=== PATIENT | female | born 1960 | race Caucasian/White ===

== ENCOUNTER 2018-03-24 09:10 | Emergency (ER) | payer MEDICAID ==
[2018-03-24 10:19] LABS: ABS Basophils 0.1 10^3/ul (0-0.2); ABS Eosinophils 0.1 10^3/ul (0-0.6); ABS Lymphocytes 2.4 10^3/ul (1.0-4.8); ABS Monocytes 0.5 10^3/ul (0-0.8); ABS Neutrophils 5.4 10^3/ul (1.5-7.7); ABS Nucleated RBC 0 10^3/ul; Eosinophil % 1.1 % (0-6); Hematocrit 37 % (35-47); Hemoglobin 12.3 g/dl (12.0-16.0); Lymphocyte % 28.5 % (25-47); Mean Corpuscular HGB Conc 33 g/dl (31-36); Mean Corpuscular Hemoglobin 30 pg (27-31); Mean Corpuscular Volume 90 fL (80-97); Mean Platelet Volume 9.3 um3 (7.4-10.4); Nucleated Red Blood Cells % 0.1; Platelet Count 211 10^3/ul (150-450); Red Blood Count 4.15 10^6/ul (4.00-5.40); Red Cell Distribution Width 14 % (10.5-15); White Blood Count 8.5 10^3/ul (3.5-10.8)
[2018-03-24 10:26] LABS: INR 1.14 (0.77-1.02)
--- NOTE | 2018-03-24 10:37 | RAD ---
Indication: Upper respiratory tract infection. 2 views of the chest including dual energy PA views demonstrate no mediastinal shift. Heart is of normal size and configuration. Pacemaker leads are in place. Lung cagle appear hyperinflated. When compared to previous exam of June 26, 2016 no significant change is noted. IMPRESSION: Hyperinflated lung cagle without evidence of active cardiopulmonary disease.
[2018-03-24 10:47] LABS: EGFR Non-African American 66.5 (>60)
[2018-03-24 11:35] VITALS: BP 161/97
--- NOTE | 2018-03-24 12:46 | ED ---
Respiratory - HPI Summary HPI Summary: Patient is a 57-year-old female with a 40 year history of smoking which he quit 2 years ago presenting to the ED with cough. She states she has had a cough since starting on a CPAP machine several months ago. The CPAP machine has humidifier and it and she is concerned over a respiratory infection. She was diagnosed with bronchitis 2 months ago and was given antibiotics without improvement of her symptoms. She arrives today tearful stating she is very stressed about her job, but denies any SI/HI. She has not taken any medication at home for relief. She denies any fevers, sweats, chills. She states she has been feeling otherwise well, but is tired as she is not getting enough sleep due to her job. PMH includes hypertension, pacer and is on anticoagulation medications. - History of Current Complaint Chief Complaint: EDGeneral Stated Complaint: COUGHING UP BLOOD Time Seen by Provider: 03/24/18 09:20 Hx Obtained From: Patient Onset/Duration: Sudden Onset Timing: Constant Initial Severity: Mild Current Severity: Mild Pain Intensity: 0 Character: Cough (Productive) Sputum Amount: Scant Sputum Color: [place]-Tinged Aggravating Factor(s): Nothing - Not worse with recumbent position or better with upright position Alleviating Factor(s): Nothing Associated Signs and Symptoms: URI, Hemoptysis - Risk Factors Status Asthmaticus Risk Factors: Negative Pulmonary Embolism Risk Factors: Negative Cardiac Risk Factors: Negative Pseudomonas Risk Factors: Negative Tuberculosis Risk Factors: Negative - Allergy/Home Medications Allergies/Adverse Reactions: Allergies Allergy/AdvReac Type Severity Reaction Status Date / Time cephalexin Allergy See Comment Verified 03/24/18 10:20 PMH/Surg Hx/FS Hx/Imm Hx Previously Healthy: Yes Endocrine/Hematology History: Reports: Hx Anticoagulant Therapy - LOW DOSE ASPIRIN SINCE 2012 Denies: Hx Diabetes, Hx Thyroid Disease Cardiovascular History: Reports: Hx Hypercholesterolemia, Hx Pacemaker/ICD - pacemaker inserted 06/25/16, Other Cardiovascular Problems/Disorders - sick sinus syndrome Denies: Hx Angina, Hx Coronary Artery Disease, Hx Hypertension - NOW OFF MEDS DUE TO QUIT SMOKING, Hx Myocardial Infarction Respiratory History: Reports: Other Respiratory Problems/Disorders - 43 YEARS OF PACK A DAY SMOKING Denies: Hx Asthma, Hx Chronic Obstructive Pulmonary Disease (COPD) GI History: Reports: Hx Gastroesophageal Reflux Disease, Hx Ulcer History: Denies: Hx Renal Disease Musculoskeletal History: Reports: Hx Arthritis Denies: Hx Scoliosis Sensory History: Reports: Hx Contacts or Glasses - reading glasses Denies: Hx Hearing Aid Opthamlomology History: Reports: Hx Contacts or Glasses - reading glasses Neurological History: Denies: Hx Headaches, Other Neuro Impairments/Disorders Psychiatric History: Reports: Hx Depression Denies: Hx Panic Disorder - Surgical History Surgery Procedure, Year, and Place: Choleycystectomy, 2006 - Immunization History Hx Pertussis Vaccination: No Immunizations Up to Date: Yes Infectious Disease History: No Infectious Disease History: Reports: Hx Clostridium Difficile - Recent dx of Cdiff 1 week ago Denies: Hx Hepatitis, Hx Human Immunodeficiency Virus (HIV), Hx of Known/ Suspected MRSA, Hx Shingles, Hx Tuberculosis, Hx Known/Suspected VRE, Hx Known/ Suspected VRSA, History Other Infectious Disease, Traveled Outside the [place] in Last 30 Days - Family History Known Family History: Positive: Cardiac Disease - BOTH PARENTS DIES [place] AGE 65, Other - MGM - PANCREATIC CANCER - Social History Occupation: Employed Full-time Lives: With Family Alcohol Use: Rare Hx Substance Use: No Substance Use Type: Reports: None Substance Use Comment - Amount & Last Used: 1-2 TIMES A MONTH Hx Tobacco Use: Yes Smoking Status (MU): Former Smoker Type: Cigarettes Amount Used/How Often: 15 cigs per day Length of Time of Smoking/Using Tobacco: 40+years Have You Smoked in the Last Year: Yes Review of Systems Negative: Fever, Chills, Fatigue, Skin Diaphoresis Negative: Palpitations, Chest Pain Positive: Cough. Negative: Shortness Of Breath Negative: Abdominal Pain, Vomiting, Diarrhea, Nausea Negative: no symptoms reported, see HPI Musculoskeletal: Negative Skin: Negative Negative: Headache, Weakness, Paresthesia Positive: Anxious, Depressed All Other Systems Reviewed And Are Negative: Yes Physical Exam Triage Information Reviewed: Yes Vital Signs On Initial Exam: Initial Vitals Temp Pulse Resp BP Pulse Ox 97.8 F 68 16 161/90 99 03/24/18 09:16 03/24/18 09:16 03/24/18 09:16 03/24/18 09:16 03/24/18 09:16 Vital Signs Reviewed: Yes Appearance: Positive: Well-Appearing, Well-Nourished Skin: Positive: Warm, Skin Color Reflects Adequate Perfusion, Mottled @ Eyes: Positive: EOMI, RAVINDER, Conjunctiva Clear Neck: Positive: Supple, No Lymphadenopathy Respiratory/Lung Sounds: Positive: Wheezes - Bilateral. Negative: Rales, Rhonchi, Unable to speak in full sentences Cardiovascular: Positive: RRR, Pulses are Symmetrical in both Upper and Lower Extremities Musculoskeletal: Positive: Normal, Strength/ROM Intact Neurological: Positive: Sensory/Motor Intact, Alert, Oriented to Person Place, Time Psychiatric: Positive: Normal AVPU Assessment: Alert Diagnostics - Vital Signs Vital Signs Temp Pulse Resp BP Pulse Ox 03/24/18 11:33 97.2 F 61 17 161/97 99 03/24/18 10:25 62 17 155/90 98 03/24/18 09:16 97.8 F 68 16 161/90 99 - Laboratory Lab Results: Lab Results 03/24/18 03/24/18 03/24/18 Range/Units 10:03 10:03 10:03 WBC 8.5 (3.5-10.8) 10^3/ul RBC 4.15 (4.00-5.40) 10^6/ul Hgb 12.3 (12.0-16.0) g/dl Hct 37 (35-47) % MCV 90 (80-97) fL MCH 30 (27-31) pg MCHC 33 (31-36) g/dl RDW 14 (10.5-15) % Plt Count 211 (150-450) 10^3/ul MPV 9.3 (7.4-10.4) um3 Neut % (Auto) 63.1 (38-83) % Lymph % (Auto) 28.5 (25-47) % [place] % (Auto) 5.9 (0-7) % Eos % (Auto) 1.1 (0-6) % Baso % (Auto) 1.4 (0-2) % Absolute Neuts (auto) 5.4 (1.5-7.7) 10^3/ul Absolute Lymphs (auto) 2.4 (1.0-4.8) 10^3/ul Absolute Monos (auto) 0.5 (0-0.8) 10^3/ul Absolute Eos (auto) 0.1 (0-0.6) 10^3/ul Absolute Basos (auto) 0.1 (0-0.2) 10^3/ul Absolute Nucleated RBC 0 10^3/ul Nucleated RBC % 0.1 INR (Anticoag Therapy) 1.14 H (0.77-1.02) Sodium 142 (135-145) mmol/L Potassium 4.1 (3.5-5.0) mmol/L Chloride 111 (101-111) mmol/L Carbon Dioxide 25 (22-32) mmol/L Anion Gap 6 (2-11) mmol/L BUN 19 (6-24) mg/dL Creatinine 0.88 (0.51-0.95) mg/dL Est GFR ( Amer) 80.4 (>60) Est GFR (Non-Af Amer) 66.5 (>60) BUN/Creatinine Ratio 21.6 H (8-20) Glucose 106 H (70-100) mg/dL Lactic Acid (0.5-2.0) mmol/L Calcium 9.1 (8.6-10.3) mg/dL Total Bilirubin 0.30 (0.2-1.0) mg/dL AST 20 (13-39) U/L ALT 25 (7-52) U/L Alkaline Phosphatase 91 (34-104) U/L Troponin I 0.00 (<0.04) ng/mL Total Protein 6.0 L (6.4-8.9) g/dL Albumin 3.8 (3.2-5.2) g/dL Globulin 2.2 (2-4) g/dL Albumin/Globulin Ratio 1.7 (1-3) 03/24/18 Range/Units 10:03 WBC (3.5-10.8) 10^3/ul RBC (4.00-5.40) 10^6/ul Hgb (12.0-16.0) g/dl Hct (35-47) % MCV (80-97) fL MCH (27-31) pg MCHC (31-36) g/dl RDW (10.5-15) % Plt Count (150-450) 10^3/ul MPV (7.4-10.4) um3 Neut % (Auto) (38-83) % Lymph % (Auto) (25-47) % [place] % (Auto) (0-7) % Eos % (Auto) (0-6) % Baso % (Auto) (0-2) % Absolute Neuts (auto) (1.5-7.7) 10^3/ul Absolute Lymphs (auto) (1.0-4.8) 10^3/ul Absolute Monos (auto) (0-0.8) 10^3/ul Absolute Eos (auto) (0-0.6) 10^3/ul Absolute Basos (auto) (0-0.2) 10^3/ul Absolute Nucleated RBC 10^3/ul Nucleated RBC % INR (Anticoag Therapy) (0.77-1.02) Sodium (135-145) mmol/L Potassium (3.5-5.0) mmol/L Chloride (101-111) mmol/L Carbon Dioxide (22-32) mmol/L Anion Gap (2-11) mmol/L BUN (6-24) mg/dL Creatinine (0.51-0.95) mg/dL Est GFR ( Amer) (>60) Est GFR (Non-Af Amer) (>60) BUN/Creatinine Ratio (8-20) Glucose (70-100) mg/dL Lactic Acid 0.7 (0.5-2.0) mmol/L Calcium (8.6-10.3) mg/dL Total Bilirubin (0.2-1.0) mg/dL AST (13-39) U/L ALT (7-52) U/L Alkaline Phosphatase (34-104) U/L Troponin I (<0.04) ng/mL Total Protein (6.4-8.9) g/dL Albumin (3.2-5.2) g/dL Globulin (2-4) g/dL Albumin/Globulin Ratio (1-3) Result Diagrams: 03/24/18 10:03 03/24/18 10:03 Lab Statement: Any lab studies that have been ordered have been reviewed, and results considered in the medical decision making process. Disposition - Course Course Of Treatment: During the course of treatment, the patient is evaluated for acute cough. History of sleep apnea, smoking history and hypertension. She endorses mild hemoptysis this morning, and states she has a gastric ulcer. She takes famotidine daily for this. She is on blood thinners for her pacemaker and her INR is within therapeutic range. She denies any epigastric tenderness. She states the hemoptysis this morning scared her. She quantifies it as well as flecks inside the mucous. She states symptoms have been since starting her CPAP machine and is concerned over an infection. Labs obtained are all WNL. Chest x-ray shows hyperinflation, without other findings. Discussed this with patient and stated due to her job she may be becoming immunocompromised and run down. She agrees with this. I have advised over-the- counter cough medication and continuation of her CPAP machine as benefits outweigh the risks. She denies any SI/HI, but just is endorsing stress. She has had no cough during her stay in the ED and her vital signs remained stable. She states she is comfortable with going home at this time and will follow up with her PCP. - Differential Dx - Cardiopulmonary Differential Diagnoses - Cardiopulmonary: Other - Acute cough, hemoptysis, gastric ulcer - Diagnoses Provider Diagnoses: Hemoptysis Discharge - Sign-Out/Discharge Documenting (check all that apply): Patient Departure - Discharge Plan Condition: Stable Disposition: HOME Referrals: Ta Joseph MD [Primary Care Provider] - Additional Instructions: Sleep Cough medication may help, such as an [id number] Robitussin Continue with CPAP machine Try an [id number] allergy medication to see if her symptoms improve Get plenty of rest and continue with a good diet - Billing Disposition and Condition Condition: STABLE Disposition: Home
== END 2018-03-24 11:38 | disposition home or self-care (01) ==
LOC: ED 09:10
DX: R04.2 Hemoptysis (principal); K25.9 Gastric ulcer, unspecified as acute or chronic, without hemorrhage or perforation; G47.30 Sleep apnea, unspecified; J98.4 Other disorders of lung; I10 Essential (primary) hypertension; Z99.89 Dependence on other enabling machines and devices; Z95.0 Presence of cardiac pacemaker; Z87.09 Personal history of other diseases of the respiratory system; Z87.891 Personal history of nicotine dependence; Z79.82 Long term (current) use of aspirin; Z88.3 Allergy status to other anti-infective agents
CPT/HCPCS: 36415; 71046; 80053; 83605; 84484; 85025; 85610; 93005; 99282

== ENCOUNTER 2019-03-12 17:55 | Emergency (ER) | payer SELFPAY ==
--- OUTSIDE RECORDS SUMMARY | 2019-03-12 18:04 | XMS REPORT | Continuity of Care Document ---
:1960 External Reference #:[id number] Author Name Jolene Valladares Care Team Providers Name Role Phone Marlyn Orourke MD Primary Care Physician Unavailable Payers Date Identification Numbers Payment Provider Subscriber Effective: Policy Number: [id number] [facility] Xavier Ferrera 2018 Expires: 2019 PayID: [id number] [address] [address] [place] [address] Expires: 2016 PayID: [id number] [employer] [address] [place] [address] Expires: 2019 Policy Number: [facility] Essential Khloe Ferrera [id number] PayID: [id number] [address] [address] [place] [address] Advance Directives Type Date Description Status Comment MOLST 12/28/2015 MOL Current and Verified Problems Active Problems Provider Date Paroxysmal atrial fibrillation Angel Rutledge NP Onset: 02/22/2016 Essential hypertension Angel Rutledge NP Onset: 02/02/2016 Hyperlipidemia Angel Rutledge NP Onset: 02/02/2016 Mild recurrent major depression Ta Joseph M.D. Onset: 02/29/2016 Mixed hyperlipidemia Ta Joseph M.D. 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 Onset: 11/08/2016 Candidiasis of mouth Ta Joseph M.D. Onset: 01/08/2017 Mild major depression, single Ta Joseph M.D. Onset: 04/11/2017 episode Abnormal glucose level Ta Joseph M.D. Onset: 01/27/2018 Prediabetes Ta Joseph M.D. Onset: 01/27/2018 Family History Date Family Member(s) Observation Comments General Family Hx Maternal GM- pancreatic cancer, obese Mom- MD Father- MD Son- alive and healthy Father Heart Disease Father due to MD () Father due to mid 60's () Mother due to Heart Disease () Mother due to MD () Siblings 3 Siblings 1/2 siblings No known cardiac disease Maternal Grandfather due to appendicitis () Maternal Grandmother due to Pancreatic () Cancer Social History Type Date Description Comments Sex Unknown Marital Status Single Lives With Alone Occupation Unemployed Tobacco Use Start: Unknown End: Former Cigarette Unknown Smoker ETOH Use consumed 2-3 glasses of wine per day Recreational Drug Use Denies Drug Use Tobacco Use Start: Unknown End: Patient is a former Unknown smoker Tobacco Use Start: Unknown quit 12/27/15 Smoking Status Reviewed: 02/18/19 quit 12/27/15 Exercise Type/Frequency Exercises regularly regular work out at [employer] 4-5 times weekly, sometimes 6 days a week. Allergies, Adverse Reactions, Alerts Active Allergies Reaction Severity Comments Date Keflex yeast infection 01/05/2016 Lipitor Severe depression and myalgias 12/28/2016 symptoms Rosuvastatin Calcium nausea, memory Moderate 12/28/2016 Simvastatin Moderate 12/28/2016 Contrast Dye 06/06/2017 Medications Active Medications SIG Qnty Indications Ordering Provider Date Fluticasone 2 sprays each 16gm J30.89 Jerry Love NP 02/18/2019 Propionate nostril qd. 50mcg/Act Suspension Lisinopril 1 by mouth every 90tabs I10 Yue Diaz, 09/30/2018 5mg day N.P. Tablets Cpap for use while Unknown 06/05/2017 Device sleeping Potassium Chloride 1 tablet by mouth 180tabs [place] 08/09/2016 ER twice a day Martin Granger 20Meq Tablets ER Magnesium-Oxide 1 by mouth every 100tabs [place] 02/16/2016 250mg day Martin Granger Tablets Eliquis take 1 tab by 180tabs R73.9 [place] 02/16/2016 5mg Tablets mouth every 12 Martin Granger hours Famotidine take one tablet 60tabs Other Ordering 12/28/2015 20mg by mouth daily Provider Tablets Sertraline HCL take 1 tablet by 180tabs F33.0 Jerry Love NP 25mg mouth two times Tablets daily History Medications Niaspan once daily 30tabs E78.5 [place] 01/27/2018 - 500mg Tablets ER [place], 09/28/2018 Martin Doxycycline Hyclate 1 po bid x 7 days 14tabs J20.9 Christiane Gonzalez, 2017 - 100mg N.P. 12/30/2017 Tablets Repatha take 1 dose 2ml E78.5 Yue S. 12/11/2017 - 140mg/ml Soln Prefill subcutaneously [place], N.P. 12/29/2018 Syringe every 2 weeks. Pravastatin Sodium take one half 14tabs [place] 10/15/2017 - 10mg tablet by mouth jg Granger M.D. 01/27/2018 Tablets w-f on Hold Nystatin 5ml swish and 250ml B37.0 [place] 10/10/2017 - [id number]/ML swallow 5 times [place], 09/28/2018 Suspension daily M.Yoana Clindamycin HCL 1 cap every 6 28caps J06.9 [place] 10/10/2017 - 150mg hours [facility], 09/12/2017 Capsules Martin Zetia 1 by mouth every 30tabs E78.00 [place] 06/06/2017 - 10mg Tablets day Martin Granger 07/09/2017 Plavix Take 75 mg PO 180tabs Grabiel Love 03/14/2017 - 75mg Tablets daily for 6 months Martin Strickland 04/29/2017 starting ~1 week prior to endovascular surgery with Dr. Strickland. Atorvastatin Calcium 1/2 tablet by 30tabs [place] 11/01/2016 - 10mg mouth every other Martin Granger 12/03/2016 Tablets day (on hold as of 11/17/16) Nystatin 5ml swish and 400ml Ta 10/19/2016 - 000175Tstf/ML swallow 5 times Jake, 06/05/2017 Suspension daily x2 weeks. Martin Fluconazole once daily Pt 2tabs B37.3 [place] 10/09/2016 - 150mg Tablets states she is no Jake, 12/27/2016 longer taking Martin Crestor 1 tab by mouth 30tabs E78.00 [place] 08/09/2016 - 5mg Tablets every other day Martin Granger 10/09/2016 Metoprolol Tartrate 1/2 by mouth once 180tabs R73.9 Sandeep Lees 06/26/2016 - 25mg a day until Martin Bang 06/05/2017 Tablets 05/07/17 and then 1/2 on 05/09, and and then discontinue Clindamycin HCL one capsule by 9caps Sandeep Lees 06/26/2016 - 150mg mouth three times Martin Bang 07/02/2016 Capsules a day for 3 days Oxycodone-Acetaminophen 1 tab every 12h as 6tabs [place] 06/26/2016 - needed Claudiaika, 07/09/2016 5-325mg Tablets Martin Potassium Chloride 1 by mouth every [place] 03/06/2016 - 20Meq day Martin Granger 08/09/2016 Sertraline HCL 1/2 by mouth bid 30tabs F33.0 [place] 03/06/2016 - 50mg Tablets Martin Granger 03/12/2016 Sertraline HCL 1 by mouth twice 60tabs F33.0 Ta 02/29/2016 - 25mg Tablets daily (pt has not Jake, 03/06/2016 been taking, pt to Martin update PMD) Sertraline HCL 1 by mouth every 30tabs F33.0 Angel Rutledge 02/22/2016 - 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 Metronidazole 1 by mouth tid x 42tabs A04.7 Angel Rutledge 02/22/2016 - 500mg Tablets 14 days; avoid REFINISHER 03/07/2016 alcohol while taking med and 24 hours thereafter Potassium Chloride ER 2 po qd x 1 week 90tabs [place] 02/16/2016 - 20Meq then 1 po qd Martin Granger 03/04/2016 Tablets ER Sertraline HCL 1 by mouth every 14tabs F33.0 Angel Rutledge, 02/07/2016 - 25mg Tablets day x 1 week then REFINISHER 02/22/2016 2 tab daily Metoprolol Tartrate 1/2 by mouth every 30tabs R73.9 [place] 2015 - 25mg day prn Martin Granger 06/26/2016 Tablets Warfarin Sodium as directed 90tabs [place] 01/19/2016 - 2.5mg Tablets [facility], 01/19/2016 Martin Duloxetine HCL once in the 30caps F32.9 [place] 01/19/2016 - 20mg Caps DR morning with food [facility], 02/01/2016 Part Martin Xarelto 1 by mouth twice 42tabs I48.91 [place] 01/19/2016 - 15mg Tablets daily [facility], 02/02/2016 MMaryDMary Omeprazole 1 by mouth every 30caps K29.60 [place] 01/05/2016 - 40mg Capsules DR day 1 hr before [facility], 10/22/2016 breakfast M.D. Tramadol HCL three times a day 30tabs M79.1 [place] 01/05/2016 - 50mg Tablets as needed [facility], 01/19/2016 Martin Ibuprofen 1 tab by mouth 30tabs Other Ordering 12/28/2015 - 800mg Tablets daily, only as Provider 01/05/2016 needed Lisinopril 1 by mouth every 30tabs Other Ordering 12/28/2015 - 5mg Tablets day Provider 03/05/2016 Hydrochlorothiazide 1 by mouth every 90tabs Other Ordering 12/28/2015 - 25mg day Provider 02/02/2016 Tablets Aspirin Ec 1 by mouth every 30tabs Other Ordering 12/28/2015 - 81mg Tablets DR day Provider 01/05/2016 Warfarin Sodium 1 tab PO daily in 60tabs Other Ordering 12/28/2015 - 5mg Tablets the evening Provider 01/19/2016 Lovenox 1 subcutaneously 10ml Other Ordering 12/28/2015 - 100mg/ml Solution every 12 hours as Provider 01/02/2016 directed x 5 days Lisinopril/Hydrochloroth take one pill a 30tabs Other Ordering 2013 - iazide day for htn Provider 03/05/2016 10-12.5mg Tablets Aspir-Low 1 po qd (has not Other Ordering 10/19/2013 - 81mg Tablets DR been taking) Provider 03/29/2016 Ibuprofen take 2-3 tabs po 100tabs Other Ordering 10/19/2013 - 200mg Tablets every 6-8 hours as Provider 03/05/2016 needed Tumeric 2 po qd Unknown - Tablets 02/02/2016 Probiotic 1 by mouth every Unknown - Capsules day 10/22/2016 Prednisone take 4 tabs by Unknown - 10mg Tablets mouth daily for 5 09/18/2018 days Azithromycin 2 now and 1 daily Unknown - 250mg Tablets x 4 days 09/18/2018 Lisinopril 1 by mouth every Unknown - 5mg Tablets day 09/30/2018 Proventil HFA 2 puffs every 4 Unknown - 108(90Base) hours as needed 01/08/2019 mcg/Act Aerosol Immunizations CPT Code Status Date Vaccine Reaction Lot # [id number] Given 07/09/2017 Influenza Virus Vaccine, no reaction, pt [id number] Quadrivalent, Split, tolerated well Preservative Free [id number] Given 10/09/2016 Tdap - [id number] Tetanus/Diptheria/Acellular Pertussis 45731 Given 05/11/2016 Influenza Virus Vaccine, Quadrivalent, Split, Preservative Free Vital Signs Date Vital Result Comment 02/18/2019 4:17pm Height 68 inches 5'8" Weight 191.25 lb Heart Rate 66 /min BP Systolic 139 mmHg BP Diastolic 80 mmHg Body Temperature 98.1 F O2 % BldC Oximetry 97 % BMI (Body Mass Index) 29.1 kg/m2 01/08/2019 3:52pm Height 68 inches 5'8" Weight 191.00 lb Heart Rate 92 /min BP Systolic 168 mmHg BP Diastolic 97 mmHg Body Temperature 98.2 F O2 % BldC Oximetry 99 % BMI (Body Mass Index) 29.0 kg/m2 10/17/2018 2:10pm Height 68 inches 5'8" Weight 186.50 lb Heart Rate 82 /min BP Systolic 144 mmHg BP Diastolic 84 mmHg O2 % BldC Oximetry 99 % BMI (Body Mass Index) 28.4 kg/m2 Last Menstrual Period [id number] 09/30/2018 8:24am Height 68 inches 5'8" Weight 180.75 lb no shoes Heart Rate 72 /min BP Systolic Sitting 126 mmHg lue large cuf BP Diastolic Sitting 80 mmHg lue large cuf BP Systolic Standing 124 mmHg lue large cuff BP Diastolic Standing 80 mmHg lue large cuff Respiratory Rate 12 /min BMI (Body Mass Index) 27.5 kg/m2 Ejection Fraction 60-65% echo.12/27/15 09/26/2018 7:55am Height 68 inches 5'8" Weight 181.00 lb Heart Rate 68 /min BP Systolic 136 mmHg BP Diastolic 83 mmHg O2 % BldC Oximetry 100 % BMI (Body Mass Index) 27.5 kg/m2 Last Menstrual Period [id number] 09/19/2018 2:12pm Height 68 inches 5'8" Weight 181.00 lb Heart Rate 88 /min BP Systolic Sitting 122 mmHg BP Diastolic Sitting 80 mmHg Body Temperature 98.1 F O2 % BldC Oximetry 96 % BMI (Body Mass Index) 27.5 kg/m2 09/16/2018 1:22pm Height 68 inches 5'8" Weight 179.50 lb with shoes Heart Rate 96 /min BP Systolic Sitting 142 mmHg left arm BP Diastolic Sitting 84 mmHg left arm BMI (Body Mass Index) 27.3 kg/m2 Ejection Fraction 60-65% Echocardiogram 12/27/15 01/27/2018 9:28am Height 68 inches 5'8" Weight 221.00 lb Heart Rate 71 /min BP Systolic 125 mmHg BP Diastolic 72 mmHg O2 % BldC Oximetry 98 % BMI (Body Mass Index) 33.6 kg/m2 12/23/2017 2:13pm Height 68 inches 5'8" Weight 225.00 lb Heart Rate 90 /min BP Systolic Sitting 124 mmHg BP Diastolic Sitting 68 mmHg Body Temperature 97.6 F O2 % BldC Oximetry 95 % BMI (Body Mass Index) 34.2 kg/m2 12/11/2017 10:10am Height 68 inches 5'8" Weight 227.00 lb w/ shoes Heart Rate 66 /min BP Systolic Sitting 110 mmHg Lue BP Diastolic Sitting 70 mmHg Lue Respiratory Rate 16 /min BMI (Body Mass Index) 34.5 kg/m2 Ejection Fraction 60-65% as of 12/27/15 echo 10/15/2017 9:19am Height 68 inches 5'8" Weight 225.00 lb w/ shoes Heart Rate 74 /min reg BP Systolic Sitting 134 mmHg Lue BP Diastolic Sitting 92 mmHg Lue Respiratory Rate 16 /min BMI (Body Mass Index) 34.2 kg/m2 Ejection Fraction 60-65% as of 12/27/15 echo 10/10/2017 8:25am Height 68 inches 5'8" Weight 225.38 lb Heart Rate 68 /min BP Systolic Sitting 122 mmHg BP Diastolic Sitting 82 mmHg Body Temperature 97.4 F O2 % BldC Oximetry 94 % BMI (Body Mass Index) 34.3 kg/m2 07/09/2017 1:56pm Weight 222.50 lb Heart Rate 74 /min BP Systolic 135 mmHg BP Diastolic 82 mmHg O2 % BldC Oximetry 99 % 06/06/2017 2:49pm Height 68 inches 5'8" Weight 222.38 lb with shoes Heart Rate 80 /min BP Systolic Sitting 136 mmHg LA lrg cuff BP Diastolic Sitting 78 mmHg LA lrg cuff BMI (Body Mass Index) 33.8 kg/m2 Ejection Fraction 55% stress test 03/01/16 04/30/2017 10:32am Height 68 inches 5'8" Weight 221.00 lb with shoes Heart Rate 80 /min BP Systolic Sitting 116 mmHg LA lrg cuff BP Diastolic Sitting 62 mmHg LA lrg cuff BMI (Body Mass Index) 33.6 kg/m2 Ejection Fraction 55% stress echo 03/01/16 04/11/2017 9:55am Height 68 inches 5'8" Weight 211.38 lb Heart Rate 78 /min BP Systolic 146 mmHg BP Diastolic 92 mmHg Body Temperature 96.9 F O2 % BldC Oximetry 99 % BMI (Body Mass Index) 32.1 kg/m2 01/08/2017 9:54am Weight 206.38 lb Heart Rate 83 /min BP Systolic 136 mmHg BP Diastolic 84 mmHg Body Temperature 97.3 F O2 % BldC Oximetry 99 % 12/28/2016 8:10am Height 68 inches 5'8" Weight 210.75 lb with shoes Heart Rate 70 /min BP Systolic Sitting 132 mmHg LA lrg cuff BP Diastolic Sitting 92 mmHg LA lrg cuff BMI (Body Mass Index) 32.0 kg/m2 Ejection Fraction 60% - 65% echo 12/27/15 11/08/2016 2:23pm Height 68 inches 5'8" Weight 212.00 lb w/ shoes Heart Rate 62 /min reg BP Systolic Sitting 110 mmHg Rue, lg cuff BP Diastolic Sitting 60 mmHg Rue, lg cuff Respiratory Rate 16 /min BMI (Body Mass Index) 32.2 kg/m2 10/23/2016 8:14am Height 68 inches 5'8" Weight 222.75 lb with shoes Heart Rate 74 /min BP Systolic Sitting 118 mmHg LA lrg cuff BP Diastolic Sitting 74 mmHg LA lrg cuff BMI (Body Mass Index) 33.9 kg/m2 Ejection Fraction 55% stress echo 03/01/16 10/09/2016 9:49am Weight 221.00 lb Heart Rate 70 /min BP Systolic Sitting 128 mmHg BP Diastolic Sitting 84 mmHg Respiratory Rate 15 /min Body Temperature 97.9 F O2 % BldC Oximetry 98 % 08/09/2016 11:26am Height 68 inches 5'8" Weight 230.00 lb w/o shoes Heart Rate 84 /min BP Systolic Sitting 130 mmHg Ra lrg cuff BP Diastolic Sitting 86 mmHg Ra lrg cuff BMI (Body Mass Index) 35.0 kg/m2 Ejection Fraction 60% - 65% echo 12/27/15 07/24/2016 8:08am Height 68 inches 5'8" Weight 234.00 lb with shoes Heart Rate 70 /min BP Systolic Sitting 112 mmHg LA lrg cuff BP Diastolic Sitting 72 mmHg LA lrg cuff BMI (Body Mass Index) 35.6 kg/m2 Ejection Fraction 55% stress echo 03/01/16 07/09/2016 12:47pm Height 68 inches 5'8" Weight 230.25 lb Heart Rate 60 /min BP Systolic Sitting 126 mmHg BP Diastolic Sitting 80 mmHg Body Temperature 96.9 F O2 % BldC Oximetry 98 % BMI (Body Mass Index) 35.0 kg/m2 07/03/2016 1:01pm Height 68 inches 5'8" Weight 227.00 lb Heart Rate 64 /min BP Systolic Sitting 128 mmHg left arm, reg cuff BP Diastolic Sitting 82 mmHg left arm, reg cuff BP Systolic Standing 130 mmHg left arm, reg cuff BP Diastolic Standing 86 mmHg left arm, reg cuff Respiratory Rate 16 /min BMI (Body Mass Index) 34.5 kg/m2 Ejection Fraction 60-65% 12/27/15 06/12/2016 8:34am Height 68 inches 5'8" Weight 226.00 lb Heart Rate 65 /min BP Systolic 128 mmHg BP Diastolic 88 mmHg Respiratory Rate 14 /min O2 % BldC Oximetry 97 % BMI (Body Mass Index) 34.4 kg/m2 06/07/2016 9:36am Height 68 inches 5'8" Weight 226.25 lb with shoes Heart Rate 66 /min BP Systolic Sitting 132 mmHg LA lrg cuff BP Diastolic Sitting 84 mmHg LA lrg cuff BMI (Body Mass Index) 34.4 kg/m2 Ejection Fraction 60% -65% echo 12/27/15 05/11/2016 10:16am Height 68 inches 5'8" Weight 224.00 lb Heart Rate 64 /min BP Systolic 134 mmHg BP Diastolic 88 mmHg Respiratory Rate 14 /min O2 % BldC Oximetry 97 % BMI (Body Mass Index) 34.1 kg/m2 Neck Circumference in inches 16 04/12/2016 10:11am Height 68 inches 5'8" Weight 218.50 lb w/ shoes Heart Rate 54 /min reg BP Systolic Sitting 140 mmHg Rue, lg cuff BP Diastolic Sitting 76 mmHg Rue, lg cuff BP Systolic Standing 134 mmHg Rue BP Diastolic Standing 80 mmHg Rue Respiratory Rate 16 /min BMI (Body Mass Index) 33.2 kg/m2 Ejection Fraction 60-65% as of 12/27/15 echo 04/06/2016 9:41am Height 68 inches 5'8" Weight 215.75 lb No shoes Heart Rate 76 /min irreg BP Systolic Sitting 136 mmHg Ra lrg cuff BP Diastolic Sitting 80 mmHg Ra lrg cuff BP Systolic Standing 140 mmHg Ra lrg cuff BP Diastolic Standing 78 mmHg Ra lrg cuff BMI (Body Mass Index) 32.8 kg/m2 Ejection Fraction 60-65% 12/27/2015 03/29/2016 8:23am Height 68 inches 5'8" Weight 216.00 lb Heart Rate 80 /min BP Systolic Sitting 130 mmHg BP Diastolic Sitting 68 mmHg Body Temperature 96.8 F O2 % BldC Oximetry 98 % BMI (Body Mass Index) 32.8 kg/m2 03/06/2016 2:37pm Height 68 inches 5'8" Weight 216.00 lb w/shoes Heart Rate 58 /min BP Systolic Sitting 132 mmHg LA lg cuff BP Diastolic Sitting 88 mmHg LA lg cuff BMI (Body Mass Index) 32.8 kg/m2 Ejection Fraction 60-65% Echo 12/27/15 02/29/2016 9:12am Height 68 inches 5'8" Weight 217.25 lb Heart Rate 88 /min BP Systolic Sitting 120 mmHg BP Diastolic Sitting 88 mmHg Body Temperature 97.8 F O2 % BldC Oximetry 98 % BMI (Body Mass Index) 33.0 kg/m2 02/22/2016 9:45am Weight 213.50 lb Heart Rate 66 /min BP Systolic Sitting 130 mmHg BP Diastolic Sitting 72 mmHg Body Temperature 97.8 F O2 % BldC Oximetry 98 % 02/16/2016 3:27pm Height 68 inches 5'8" Weight 218.00 lb with shoes Heart Rate 66 /min BP Systolic Sitting 132 mmHg La lg cuff BP Diastolic Sitting 80 mmHg La lg cuff BP Systolic Standing 142 mmHg LA lrg cuff BP Diastolic Standing 86 mmHg LA lrg cuff Respiratory Rate 16 /min BMI (Body Mass Index) 33.1 kg/m2 Ejection Fraction 60-65% date 12/27/15 ECHO 02/07/2016 2:42pm Height 68 inches 5'8" Weight 215.00 lb Heart Rate 78 /min BP Systolic Sitting 142 mmHg BP Diastolic Sitting 68 mmHg O2 % BldC Oximetry 98 % BMI (Body Mass Index) 32.7 kg/m2 02/02/2016 9:39am Height 68 inches 5'8" Weight 213.50 lb with shoes Heart Rate 58 /min BP Systolic 122 mmHg LA lrg cuff BP Diastolic 80 mmHg LA lrg cuff BMI (Body Mass Index) 32.5 kg/m2 01/19/2016 2:10pm Height 68 inches 5'8" Weight 210.00 lb Heart Rate 80 /min BP Systolic Sitting 120 mmHg BP Diastolic Sitting 78 mmHg Body Temperature 97.8 F O2 % BldC Oximetry 98 % BMI (Body Mass Index) 31.9 kg/m2 01/05/2016 3:15pm Height 68 inches 5'8" Weight 210.00 lb Heart Rate 61 /min BP Systolic Sitting 110 mmHg BP Diastolic Sitting 70 mmHg Body Temperature 97.7 F O2 % BldC Oximetry 95 % BMI (Body Mass Index) 31.9 kg/m2 10/19/2013 1:18pm Height 68 inches 5'8" Weight 217.00 lb Heart Rate 102 /min BP Systolic 140 mmHg BP Diastolic 86 mmHg Respiratory Rate 20 /min Body Temperature 96.8 F BMI (Body Mass Index) 33.0 kg/m2 Results Test Date Facility Test Result H/L Range Note Urine Culture And 10/17/2018 [facility] Urine Culture SEE RESULT [address] [place] [address] [phone] Laboratory test 09/26/2018 [facility] Cytology SEE RESULT [address] [place] [address] [phone] Lipid Panel - JFM 09/22/2018 [facility] Creatine 62 U/L N 10- [address] Kinase(CK) [place] [address] [phone] Comp Metabolic 09/22/2018 [facility] Sodium 138 mmol/L N 135- [address] [place] [address] [phone] Potassium 4.5 mmol/L N 3.5-5.0 Chloride 105 mmol/L N 101-111 Co2 Carbon Dioxide 25 mmol/L N 22-32 Anion Gap 8 mmol/L N 2-11 Glucose 124 mg/dL High 70-100 Blood Urea Nitrogen 23 mg/dL N 6-24 Creatinine 0.95 mg/dL N 0.51-0.95 BUN/Creatinine Ratio 24.2 High 8-20 Calcium 9.6 mg/dL N 8.6-10.3 Total Protein 6.5 g/dL N 6.4-8.9 Albumin 4.4 g/dL N 3.2-5.2 Globulin 2.1 g/dL N 2-4 Albumin/Globulin Ratio 2.1 N 1-3 Total Bilirubin 0.90 mg/dL N 0.2-1.0 Alkaline Phosphatase 107 U/L High 34-104 Alt 26 U/L N 7-52 Ast 19 U/L N 13-39 Egfr Non- 60.9 >60 Egfr 73.6 >60 4 Lipid Profile 09/22/2018 [facility] Triglycerides 185 mg/dL 5 (Trig/Chol/HDL) [address] [place] [address] [phone] Cholesterol 265 mg/dL 6 HDL Cholesterol 67.2 mg/dL 7 LDL Cholesterol 161 mg/dL 8 CBC Auto Diff 09/22/2018 [facility] White Blood 9.9 10^3/uL N 3.5-10.[address] [place] [address] [phone] Red Blood Count 4.65 10^6/uL N 4.00-5.40 Hemoglobin 14.4 g/dL N 12.0-16.0 Hematocrit 43 % N 35-47 Mean Corpuscular Volume 93 fL N 80-97 Mean Corpuscular Hemoglobin 31 pg N 27-31 Mean Corpuscular HGB Conc 33 g/dL N 31-36 Red Cell Distribution Width 14 % N 10.5-15 Platelet Count 279 10^3/uL N 150-450 Mean Platelet Volume 8.7 fL N 7.4-10.4 Abs Neutrophils 5.3 10^3/uL N 1.5-7.7 Abs Lymphocytes 3.7 10^3/uL N 1.0-4.8 Abs Monocytes 0.7 10^3/uL N 0-0.8 Abs Eosinophils 0.2 10^3/uL N 0-0.6 Abs Basophils 0.1 10^3/uL N 0-0.2 Abs Nucleated RBC 0 10^3/uL Granulocyte % 53.1 % Lymphocyte % 37.4 % Monocyte % 7.0 % Eosinophil % 1.9 % Basophil % 0.6 % Nucleated Red Blood Cells % 0.1 Laboratory test 09/22/2018 [facility] Hemoglobin A1c 5.8 % High 4.0-5.[address] (Glyco HGB) [place] [address] [phone] Magnesium 2.2 mg/dL N 1.9-2.7 10 C Reactive Protein 1.83 mg/L N <8.01 11 Erythrocyte Sed Rate 5 mm/Hr N 0-30 12 Rapid Influenza 09/15/2018 [facility] Influenza A NEGATIVE Negative 13 A & B Molecular [address] [place] [address] [phone] Influenza B Molecular NEGATIVE Negative Mumps Igg 02/18/2018 [facility] Mumps Virus IgG Antibody Positive [address] [place] [address] [phone] Mumps IgG Antibody Index 4.7 15 Laboratory test 02/18/2018 [facility] Rubella Screen Immune Immune finding [address] [place] [address] [phone] Rubeola Measles 02/18/2018 [facility] Rubeola Positive 16 Igg AB [address] (Measles) [place] [address] Antibody [phone] Rubeola IgG Antibody Index 6.8 17 Laboratory test 01/27/2018 [facility] Hemoglobin A1c 6.3 5-7 finding Laboratory test 10/15/2017 [facility] Magnesium 2.0 mg/dL N 1.9-2.7 [address] [place] [address] [phone] CBC Auto Diff 10/15/2017 [facility] White Blood Count 11.2 High 3.5-10.[address] 10^3/[place] [address] [phone] Red Blood Count 4.38 10^6/uL N 4.0-5.4 Hemoglobin 12.6 g/dL N 12.0-16.0 Hematocrit 39 % N 35-47 Mean Corpuscular Volume 89 fL N 80-97 Mean Corpuscular Hemoglobin 29 pg N 27-31 Mean Corpuscular HGB Conc 33 g/dL N 31-36 Red Cell Distribution Width 14 % N 10.5-15 Platelet Count 292 10^3/uL N 150-450 Mean Platelet Volume 8 um3 N 7.4-10.4 Abs Neutrophils 6.5 10^3/uL N 1.5-7.7 Abs Lymphocytes 3.6 10^3/uL N 1.0-4.8 Abs Monocytes 0.6 10^3/uL N 0-0.8 Abs Eosinophils 0.3 10^3/uL N 0-0.6 Abs Basophils 0.1 10^3/uL N 0-0.2 Abs Nucleated RBC 0 10^3/uL Granulocyte % 58.3 % N 38-83 Lymphocyte % 32.2 % N 25-47 Monocyte % 5.4 % N 0-7 Eosinophil % 3.1 % N 0-6 Basophil % 1.0 % N 0-2 Nucleated Red Blood Cells % 0.1 Laboratory test 10/15/2017 [facility] Hemoglobin A1c 6.1 % High 4.0-5.6 [address] (Glyco HGB) [place] [address] [phone] Laboratory test 10/10/2017 [facility] TSH (Thyroid 2.76 N 0.34 -5.[address] Stim Horm) mcIU/[place] [address] [phone] Basic Metabolic 10/10/2017 [facility] Sodium 139 N 133-[address] mmol/[place] [address] [phone] Potassium 4.4 mmol/L N 3.5-5.0 Chloride 105 mmol/L N 101-111 Co2 Carbon Dioxide 26 mmol/L N 22-32 Anion Gap 8 mmol/L N 2-11 Glucose 116 mg/dL High 70-100 Blood Urea Nitrogen 15 mg/dL N 6-24 Creatinine 0.73 mg/dL N 0.51-0.95 BUN/Creatinine Ratio 20.5 High 8-20 Calcium 9.3 mg/dL N 8.6-10.3 Egfr Non- 82.8 >60 Egfr 106.4 >60 20 Lipid Profile 10/10/2017 [facility] Triglycerides 173 mg/dL 21 (Trig/Chol/HDL) [address] [place] [address] [phone] Cholesterol 242 mg/dL 22 HDL Cholesterol 40.2 mg/dL 23 LDL Cholesterol 167 mg/dL 24 Laboratory test 04/05/2017 [facility] HCG 2.21 mIU/mL N [address] [place], [place] [address] [phone] CBC Auto Diff 04/05/2017 [facility] White Blood 10.6 10^3/uL N 3.5-[address] Count .8 [place] [address] [phone] Red Blood Count 3.99 10^6/uL Low 4.0-5.4 Hemoglobin 11.4 g/dL Low 12.0-16.0 Hematocrit 35 % N 35-47 Mean Corpuscular Volume 88 fL N 80-97 Mean Corpuscular Hemoglobin 29 pg N 27-31 Mean Corpuscular HGB Conc 32 g/dL N 31-36 Red Cell Distribution Width 13 % N 10.5-15 Platelet Count 284 10^3/uL N 150-450 Mean Platelet Volume 9 um3 N 7.4-10.4 Abs Neutrophils 6.8 10^3/uL N 1.5-7.7 Abs Lymphocytes 2.7 10^3/uL N 1.0-4.8 Abs Monocytes 0.7 10^3/uL N 0-0.8 Abs Eosinophils 0.3 10^3/uL N 0-0.6 Abs Basophils 0.1 10^3/uL N 0-0.2 Abs Nucleated RBC 0 10^3/uL N Granulocyte % 63.6 % N 38-83 Lymphocyte % 25.1 % N 25-47 Monocyte % 6.8 % N 1-9 Eosinophil % 3.2 % N 0-6 Basophil % 1.3 % N 0-2 Nucleated Red Blood Cells % 0 N Laboratory test 04/05/2017 [facility] Partial 33.8 seconds N 26.0-36.3 finding [address] [facility] [place] [address] PTT [phone] Inr/Protime 04/05/2017 [facility] Inr 0.96 N 0.89-1.11 [address] [place] [address] [phone] Basic Metabolic 04/02/2017 [facility] Sodium 139 mmol/L N 133- 145 Panel 101 [place] [address] [phone] Potassium 4.3 mmol/L N 3.5-5.0 Chloride 106 mmol/L N 101-111 Co2 Carbon Dioxide 26 mmol/L N 22-32 Anion Gap 7 mmol/L N 2-11 Glucose 111 mg/dL High 70-100 Blood Urea Nitrogen 11 mg/dL N 6-24 Creatinine 0.74 mg/dL N 0.51-0.95 BUN/Creatinine Ratio 14.9 N 8-20 Calcium 9.2 mg/dL N 8.6-10.3 Egfr Non- 81.5 N >60 Egfr 104.8 N >60 26 Lipid Profile 04/02/2017 [facility] Triglycerides 179 mg/dL N 27 (Trig/Chol/HDL) [address] [place] [address] [phone] Cholesterol 258 mg/dL N 28 HDL Cholesterol 40.9 mg/dL N 29 LDL Cholesterol 181 mg/dL N 30 Lipid Profile 12/25/2016 [facility] Triglycerides 176 mg/dL N 31 (Trig/Chol/HDL) [address] [place] [address] [phone] Cholesterol 218 mg/dL N 32 HDL Cholesterol 36.6 mg/dL N 33 LDL Cholesterol 146 mg/dL N 34 Lipid Panel - 10/29/2016 [facility] Creatine 77 U/L N 10-[address] Kinase(CK) [place] [address] [phone] Comp Metabolic 10/29/2016 [facility] Sodium 137 N 133-[address] mmol/[place] [address] [phone] Potassium 4.2 mmol/L N 3.5-5.0 Chloride 106 mmol/L N 101-111 Co2 Carbon Dioxide 26 mmol/L N 22-32 Anion Gap 5 mmol/L N 2-11 Glucose 106 mg/dL High 70-100 Blood Urea Nitrogen 11 mg/dL N 6-24 Creatinine 0.66 mg/dL N 0.51-0.95 BUN/Creatinine Ratio 16.7 N 8-20 Calcium 9.1 mg/dL N 8.6-10.3 Total Protein 6.6 g/dL N 6.4-8.9 Albumin 4.0 g/dL N 3.2-5.2 Globulin 2.6 g/dL N 2-4 Albumin/Globulin Ratio 1.5 N 1-3 Total Bilirubin 0.30 mg/dL N 0.2-1.0 Alkaline Phosphatase 97 U/L N 34-104 Alt 13 U/L N 7-52 Ast 15 U/L N 13-39 Egfr Non- 93.0 N >60 Egfr 119.6 N >60 35 Lipid Profile 10/29/2016 [facility] Triglycerides 151 mg/dL N 36 (Trig/Chol/HDL) [address] [place] [address] [phone] Cholesterol 240 mg/dL N 37 HDL Cholesterol 38.0 mg/dL N 38 LDL Cholesterol 172 mg/dL N 39 CBC Auto Diff 10/29/2016 [facility] White Blood 10.1 10^3/uL N 3.5-10.[address] [place] [address] [phone] Red Blood Count 4.27 10^6/uL N 4.0-5.4 Hemoglobin 12.4 g/dL N 12.0-16.0 Hematocrit 37 % N 35-47 Mean Corpuscular Volume 88 fL N 80-97 Mean Corpuscular Hemoglobin 29 pg N 27-31 Mean Corpuscular HGB Conc 33 g/dL N 31-36 Red Cell Distribution Width 14 % N 10.5-15 Platelet Count 272 10^3/uL N 150-450 Mean Platelet Volume 9 um3 N 7.4-10.4 Abs Neutrophils 6.1 10^3/uL N 1.5-7.7 Abs Lymphocytes 2.9 10^3/uL N 1.0-4.8 Abs Monocytes 0.6 10^3/uL N 0-0.8 Abs Eosinophils 0.4 10^3/uL N 0-0.6 Abs Basophils 0.1 10^3/uL N 0-0.2 Abs Nucleated RBC 0 10^3/uL N Granulocyte % 60.5 % N 38-83 Lymphocyte % 28.7 % N 25-47 Monocyte % 5.6 % N 1-9 Eosinophil % 3.9 % N 0-6 Basophil % 1.3 % N 0-2 Nucleated Red Blood Cells % 0 N Laboratory test 10/29/2016 [facility] Magnesium 2.0 mg/dL N 1.9-2.7 finding [address] [place] [address] [phone] Laboratory test 10/09/2016 [facility] Hemoglobin A1c 6.3 5-7 finding Lipid Panel - 08/07/2016 [facility] Creatine 115 U/L N 10-223 40 [address] [facility] Kinase(CK) [place] [address] [phone] Comp Metabolic 08/07/2016 [facility] Sodium 139 mmol/L N 133- 145 Panel [address] [place] [address] [phone] Potassium 3.8 mmol/L N 3.5-5.0 Chloride 107 mmol/L N 101-111 Co2 Carbon Dioxide 24 mmol/L N 22-32 Anion Gap 8 mmol/L N 2-11 Glucose 127 mg/dL High 70-100 Blood Urea Nitrogen 9 mg/dL N 6-24 Creatinine 0.65 mg/dL N 0.51-0.95 BUN/Creatinine Ratio 13.8 N 8-20 Calcium 8.8 mg/dL N 8.6-10.3 Total Protein 6.2 g/dL Low 6.4-8.9 Albumin 3.9 g/dL N 3.2-5.2 Globulin 2.3 g/dL N 2-4 Albumin/Globulin Ratio 1.7 N 1-3 Total Bilirubin 0.30 mg/dL N 0.2-1.0 Alkaline Phosphatase 98 U/L N 34-104 Alt 18 U/L N 7-52 Ast 15 U/L N 13-39 Egfr Non- 95.0 N >60 Egfr 122.2 N >60 41 Lipid Profile 08/07/2016 [facility] Triglycerides 156 mg/dL N 42 (Trig/Chol/HDL) [address] [place] [address] [phone] Cholesterol 228 mg/dL N 43 HDL Cholesterol 40.6 mg/dL N 44 LDL Cholesterol 156 mg/dL N 45 CBC Auto Diff 08/07/2016 [facility] White Blood 9.5 10^3/uL N 3.5-10.[address] [place] [address] [phone] Red Blood Count 4.20 10^6/uL N 4.0-5.4 Hemoglobin 12.1 g/dL N 12.0-16.0 Hematocrit 37 % N 35-47 Mean Corpuscular Volume 87 fL N 80-97 Mean Corpuscular Hemoglobin 29 pg N 27-31 Mean Corpuscular HGB Conc 33 g/dL N 31-36 Red Cell Distribution Width 14 % N 10.5-15 Platelet Count 298 10^3/uL N 150-450 Mean Platelet Volume 9 um3 N 7.4-10.4 Abs Neutrophils 5.6 10^3/uL N 1.5-7.7 Abs Lymphocytes 3.0 10^3/uL N 1.0-4.8 Abs Monocytes 0.5 10^3/uL N 0-0.8 Abs Eosinophils 0.3 10^3/uL N 0-0.6 Abs Basophils 0.1 10^3/uL N 0-0.2 Abs Nucleated RBC 0 10^3/uL N Granulocyte % 58.5 % N 38-83 Lymphocyte % 31.9 % N 25-47 Monocyte % 5.4 % N 1-9 Eosinophil % 3.2 % N 0-6 Basophil % 1.0 % N 0-2 Nucleated Red Blood Cells % 0 N Laboratory test 08/07/2016 [facility] Magnesium 1.9 mg/dL N 1.9-2.7 [address] [place] [address] [phone] Pre Cath Panel 06/25/2016 [facility] Partial 30.7 N 26.0-36.[address] [place] [address] PTT [phone] Comp Metabolic 06/25/2016 [facility] Sodium 138 mmol/L N 133- [address] [place] [address] [phone] Potassium 3.9 mmol/L N 3.5-5.0 Chloride 106 mmol/L N 101-111 Co2 Carbon Dioxide 26 mmol/L N 22-32 Anion Gap 6 mmol/L N 2-11 Glucose 103 mg/dL High 70-100 Blood Urea Nitrogen 15 mg/dL N 6-24 Creatinine 0.65 mg/dL N 0.51-0.95 BUN/Creatinine Ratio 23.1 High 8-20 Calcium 9.0 mg/dL N 8.6-10.3 Total Protein 6.4 g/dL N 6.4-8.9 Albumin 3.8 g/dL N 3.2-5.2 Globulin 2.6 g/dL N 2-4 Albumin/Globulin Ratio 1.5 N 1-3 Total Bilirubin 0.30 mg/dL N 0.2-1.0 Alkaline Phosphatase 93 U/L N 34-104 Alt 17 U/L N 7-52 Ast 14 U/L N 13-39 Egfr Non- 95.0 N >60 Egfr 122.2 N >60 47 Inr/Protime 06/25/2016 [facility] Inr 0.86 Low 0.89-1.[address] [place] [address] [phone] CBC Auto Diff 06/25/2016 [facility] White Blood 10.8 N 3.5- 10.[address] Count 10^3/[place] [address] [phone] Red Blood Count 4.12 10^6/uL N 4.0-5.4 Hemoglobin 11.9 g/dL Low 12.0-16.0 Hematocrit 35 % N 35-47 Mean Corpuscular Volume 86 fL N 80-97 Mean Corpuscular Hemoglobin 29 pg N 27-31 Mean Corpuscular HGB Conc 34 g/dL N 31-36 Red Cell Distribution Width 14 % N 10.5-15 Platelet Count 273 10^3/uL N 150-450 Mean Platelet Volume 9 um3 N 7.4-10.4 Abs Neutrophils 6.5 10^3/uL N 1.5-7.7 Abs Lymphocytes 3.0 10^3/uL N 1.0-4.8 Abs Monocytes 0.8 10^3/uL N 0-0.8 Abs Eosinophils 0.3 10^3/uL N 0-0.6 Abs Basophils 0.1 10^3/uL N 0-0.2 Abs Nucleated RBC 0 10^3/uL N Granulocyte % 60.4 % N 38-83 Lymphocyte % 27.7 % N 25-47 Monocyte % 7.7 % N 1-9 Eosinophil % 3.0 % N 0-6 Basophil % 1.2 % N 0-2 Nucleated Red Blood Cells % 0 N Comp Metabolic Panel 03/08/2016 [facility] Sodium 138 mmol/L N 133-[address] [place] [address] [phone] Potassium 3.9 mmol/L N 3.5-5.0 Chloride 106 mmol/L N 101-111 Co2 Carbon Dioxide 26 mmol/L N 22-32 Anion Gap 6 mmol/L N 2-11 Glucose 132 mg/dL High 70-100 Blood Urea Nitrogen 9 mg/dL N 6-24 Creatinine 0.68 mg/dL N 0.51-0.95 BUN/Creatinine Ratio 13.2 N 8-20 Calcium 8.9 mg/dL N 8.6-10.3 Total Protein 5.7 g/dL Low 6.4-8.9 Albumin 3.7 g/dL N 3.2-5.2 Globulin 2.0 g/dL N 2-4 Albumin/Globulin Ratio 1.9 N 1-3 Total Bilirubin 0.30 mg/dL N 0.2-1.0 Alkaline Phosphatase 70 U/L N 34-104 Alt 13 U/L N 7-52 Ast 13 U/L N 13-39 Egfr Non- 90.2 N >60 Egfr 116.0 N >60 48 Comp Metabolic Panel 02/29/2016 [facility] Sodium 137 mmol/L N 133-[address] [place] [address] [phone] Potassium 4.1 mmol/L N 3.5-5.0 Chloride 106 mmol/L N 101-111 Co2 Carbon Dioxide 25 mmol/L N 22-32 Anion Gap 6 mmol/L N 2-11 Glucose 97 mg/dL N 70-100 Blood Urea Nitrogen 13 mg/dL N 6-24 Creatinine 0.70 mg/dL N 0.51-0.95 BUN/Creatinine Ratio 18.6 N 8-20 Calcium 9.0 mg/dL N 8.6-10.3 Total Protein 6.0 g/dL Low 6.4-8.9 Albumin 3.9 g/dL N 3.2-5.2 Globulin 2.1 g/dL N 2-4 Albumin/Globulin Ratio 1.9 N 1-3 Total Bilirubin 0.40 mg/dL N 0.2-1.0 Alkaline Phosphatase 70 U/L N 34-104 Alt 18 U/L N 7-52 Ast 13 U/L N 13-39 Egfr Non- 87.2 N >60 Egfr 112.1 N >60 49 Laboratory 02/29/2016 [facility] Magnesium 1.8 mg/dL Low 1.9- 2.7 50 test finding [address] [place] [address] [phone] Laboratory 02/22/2016 [facility] C Difficile PCR SEE RESULT 51 test finding [address] [place] [address] [phone] Laboratory 02/02/2016 [facility] B-Type 49 pg/mL N 52 test finding [address] [place] [address] Peptide BNP [phone] CBC Auto Diff 02/02/2016 [facility] White Blood 13.0 High 3.5- 10.[address] Count 10^3/uL [place], [place] [address] [phone] Red Blood Count 4.28 10^6/uL N 4.0-5.4 Hemoglobin 12.4 g/dL N 12.0-16.0 Hematocrit 38 % N 35-47 Mean Corpuscular Volume 89 fL N 80-97 Mean Corpuscular Hemoglobin 29 pg N 27-31 Mean Corpuscular HGB Conc 33 g/dL N 31-36 Red Cell Distribution Width 13 % N 10.5-15 Platelet Count 349 10^3/uL N 150-450 Mean Platelet Volume 9 um3 N 7.4-10.4 Abs Neutrophils 7.7 10^3/uL N 1.5-7.7 Abs Lymphocytes 4.2 10^3/uL N 1.0-4.8 Abs Monocytes 0.6 10^3/uL N 0-0.8 Abs Eosinophils 0.3 10^3/uL N 0-0.6 Abs Basophils 0.2 10^3/uL N 0-0.2 Abs Nucleated RBC 0.02 10^3/uL N Granulocyte % 59.1 % N 38-83 Lymphocyte % 32.6 % N 25-47 Monocyte % 4.5 % N 1-9 Eosinophil % 2.6 % N 0-6 Basophil % 1.2 % N 0-2 Nucleated Red Blood Cells % 0.1 N Comp Metabolic Panel 02/02/2016 [facility] Sodium 137 mmol/L N 133-[address] [place] [address] [phone] Potassium 3.8 mmol/L N 3.5-5.0 Chloride 101 mmol/L N 101-111 Co2 Carbon Dioxide 28 mmol/L N 22-32 Anion Gap 8 mmol/L N 2-11 Glucose 106 mg/dL High 70-100 Blood Urea Nitrogen 13 mg/dL N 6-24 Creatinine 0.72 mg/dL N 0.51-0.95 BUN/Creatinine Ratio 18.1 N 8-20 Calcium 9.7 mg/dL N 8.6-10.3 Total Protein 6.7 g/dL N 6.4-8.9 Albumin 4.3 g/dL N 3.2-5.2 Globulin 2.4 g/dL N 2-4 Albumin/Globulin Ratio 1.8 N 1-3 Total Bilirubin 0.40 mg/dL N 0.2-1.0 Alkaline Phosphatase 75 U/L N 34-104 Alt 17 U/L N 7-52 Ast 14 U/L N 13-39 Egfr Non- 84.4 N >60 Egfr 108.6 N >60 53 Laboratory test 02/02/2016 [facility] CRP High 5.51 mg/L N [address] [place] [address] [phone] Erythrocyte Sed Rate 32 mm/Hr High 0-30 Magnesium 1.9 mg/dL N 1.9-2.7 Protime W/ Inr 01/19/2016 [facility] Prothrombin Time 30.4 Inr 2.5 Protime W/ Inr 01/13/2016 [facility] Prothrombin Time 43.2 Inr 3.6 Laboratory test 01/09/2016 [facility] Erythrocyte Sed 21 mm/Hr N 0-30 [address] [place] [address] [phone] Creatine Kinase(CK) 107 U/L N 10-223 56 Anti Nuclear Antibody 0.3 U N 57 Rheumatoid Factor <15 IU/mL N <15 58 Lipid Profile 01/09/2016 [facility] Triglycerides 134 mg/dL N 59 (Trig/Chol/HDL) [address] [place] [address] [phone] Cholesterol 253 mg/dL N 60 HDL Cholesterol 45.0 mg/dL N 61 LDL Cholesterol 181 mg/dL N 62 Protime W/ Inr 01/05/2016 [facility] Prothrombin Time 31.0 Inr 2.6 Laboratory test 01/05/2016 [facility] Magnesium 1.8 mg/dL Low 1.9-2.[address] [place] [address] [phone] Comp Metabolic 01/05/2016 [facility] Sodium 133 mmol/L N 133- 145 Panel [address] [place] [address] [phone] Potassium 4.0 mmol/L N 3.5-5.0 Chloride 99 mmol/L Low 101-111 Co2 Carbon Dioxide 27 mmol/L N 22-32 Anion Gap 7 mmol/L N 2-11 Glucose 105 mg/dL High 70-100 Blood Urea Nitrogen 15 mg/dL N 6-24 Creatinine 0.80 mg/dL N 0.51-0.95 BUN/Creatinine Ratio 18.8 N 8-20 Calcium 9.6 mg/dL N 8.6-10.3 Total Protein 6.8 g/dL N 6.4-8.9 Albumin 4.6 g/dL N 3.2-5.2 Globulin 2.2 g/dL N 2-4 Albumin/Globulin Ratio 2.1 N 1-3 Total Bilirubin 0.20 mg/dL N 0.2-1.0 Alkaline Phosphatase 80 U/L N 34-104 Alt 57 U/L High 7-52 Ast 24 U/L N 13-39 Egfr Non- 74.7 N >60 Egfr 96.1 N >60 63 Inr/Protime 01/02/2016 [facility] Inr 2.54 High 0.89-1.[address] [place], [place] [id number] [phone] Rubeola Measles 10/19/2013 [facility] Rubeola Positive 64 Igg AB [address] (Measles) [place] [address] IgG Antibody [phone] Rubeola IgG Antibody Index >8.0 65 Rubella Igg Titer 10/19/2013 [facility] Rubella IgG Positive [address] [place] [address] [phone] Rubella IgG Antibody Index >8.0 67 Mumps Igg 10/19/2013 [facility] Mumps Virus IgG Antibody Positive [address] [place], [place] [address] [phone] Mumps IgG Antibody Index 5.5 69 1 SEE RESULT BELOW Name: JEANNAKHLOE L : [address]: Angelica Chavira MD Acct: [id number] Unit: [id number] AGE: 58 Location: [facility] Re10/17/18 SEX: F Status: REG REF SPEC: [id number] [place]: 10/17/18-[address]: Angelica Chavira MD REQ: [id number] RECD: 10/17/18 STATUS: COMP _ S[facility] ORDERED: Urine Culture COMMENTS: [id number] Urine Source: Random Procedure Result Reported Site Urine Culture Final 10/18/18- 1610 ML No Growth (<1,000 CFU/mL) * ML - Main Lab . END OF REPORT DEPARTMENT OF PATHOLOGY, [address] [place] [address] Antonio Rivera M.D. Director [facility] # [id number] 2 SEE RESULT BELOW Name: KHLOE FERRERA : [address]: Brandi Pickard REFINISHER Acct: [id number] Unit: [id number] AGE: 57 Location: [facility] Re09/26/18 SEX: F Status: REG REF SPEC: [id number] [place]: 09/26/[address]: Brandi Pickard REFINISHER REQ: [id number] RECD: 09/26/18 STATUS: SOUT _ ORDERED: TP IMAGE ANALYS, HPV/Thin Prep COMMENTS: [id number] Negative for Intraepithelial lesion or Malignancy Date Time Test Result Flag (u) Normal Range 09/26/18 0844 @ HPV RNA Negative Negative @ @ The high-risk HPV types detected by the assay include: 16, @ 18, 31, 33, 35, 39, 45, 51, 52, 56, 58, 59, 66, and 68. A. Ectocervical/Endocervical Specimen Adequacy: Satisfactory of evaluation Transformation zone component identified Patient Information: HPV: High risk HPV RNA testing regardless of pap results. Actual Specimen Date: 09/26/18 ?: N Post Menopausal?: Y Hysterectomy?: N Previous Abnormal Pap Smears?:N Signed by and Reported on: LeoTEQUILA Vargas(ASCP) 1518 This Pap test was evaluated with the assistance of the Quantum DielectrricsPrep Test Imaging System. Due to cytologic findings at the bank cashier microscope, comprehensive manual rescreening by a Pathology Specialist may be required. The Pap Smear is a screening test designed to aid in the detection of premalignant and malignant conditions of the uterine cervix. It is not a diagnostic procedure and should not be used as the sole means of detecting cervical cancer. Both false- positive and false- negative reports do occur. Depending on your risk status, a Pap smear should be obtained and evaluated every 1-3 years. END OF REPORT DEPARTMENT OF PATHOLOGY, [address] [place] [address] Antonoi Rivera M.D. Director [facility] # [id number] 3 FASTING Copy Result to: TA JOSEPH ([id number]) 4 Because ethnic data is not always readily available, this report includes an eGFR for both -Americans and non- Americans. The National Kidney Disease Education Program (NKDEP) does not endorse the use of the MDRD equation for patients that are not between the ages of 18 and 70, are , have extremes of body size, muscle mass, or nutritional status, or are non- or non-. According to the National Kidney Foundation, irrespective of diagnosis, the stage of the disease is based on the level of kidney function: Stage Description GFR(mL/min/1.73 m(2)) 1 Kidney damage with normal or decreased GFR 90 2 Kidney damage with mild decrease in GFR 60-89 3 Moderate decrease in GFR 30-59 4 Severe decrease in GFR 15-29 5 Kidney failure <15 (or dialysis) 5 Desirable: <150 Borderline High: 150-199 High: 200-499 Very High: >500 6 Desirable: <200 Borderline High: 200-239 High: >239 7 Low: <40 Desirable: 40-60 High: >60 8 Desirable: <100 Near Optimal: 100-129 Borderline High: 130-159 High: 160-189 Very High: >189 9 Therapeutic target for the treatment of diabetes mellitus patients is <7% HBA1C, and in selective patients <6.0%. Please refer to [place] [employer] diabetic care guidelines for further information. 10 FASTING Copy Result to: TA JOSEPH ([id number]) 11 FASTING Copy Result to: TA JOSEPH ([id number]) 12 FASTING Copy Result to: TA JOSEPH ([id number]) 13 Inclusion Paraeducator: [id number] 14 Results suggest response to immunization or prior exposure to the virus. REFERENCE VALUE Vaccinated: Positive (>=1.1 AI) Unvaccinated: Negative (<=0.8 AI) 15 Test Performed by: [place] [address] 16 Results suggest response to immunization or prior exposure to the virus. REFERENCE VALUE Vaccinated: Positive (>=1.1 AI) Unvaccinated: Negative (<=0.8 AI) 17 Test Performed by: [place] [address] 18 Copy Result to: TA JOSEPH ([id number]) 19 Therapeutic target for the treatment of diabetes mellitus patients is <7% HBA1C, and in selective patients <6.0%. Please refer to [place] [employer] diabetic care guidelines for further information. 20 Because ethnic data is not always readily available, this report includes an eGFR for both -Americans and non- Americans. The National Kidney Disease Education Program (NKDEP) does not endorse the use of the MDRD equation for patients that are not between the ages of 18 and 70, are , have extremes of body size, muscle mass, or nutritional status, or are non- or non-. According to the National Kidney Foundation, irrespective of diagnosis, the stage of the disease is based on the level of kidney function: Stage Description GFR(mL/min/1.73 m(2)) 1 Kidney damage with normal or decreased GFR 90 2 Kidney damage with mild decrease in GFR 60-89 3 Moderate decrease in GFR 30-59 4 Severe decrease in GFR 15-29 5 Kidney failure <15 (or dialysis) 21 Desirable: <150 Borderline High: 150-199 High: 200-499 Very High: >500 22 Desirable: <200 Borderline High: 200-239 High: >239 23 Low: <40 Desirable: 40-60 High: >60 24 Desirable: <100 Near Optimal: 100-129 Borderline High: 130-159 High: 160-189 Very High: >189 25 <5.0 Negative 5.0 - 25.0 Indeterminate (Repeat testing recommended after 72 hours) >25.0 Positive Perimenopausal women can display HCG levels of up to 20 mIU/mL 26 Because ethnic data is not always readily available, this report includes an eGFR for both -Americans and non- Americans. The National Kidney Disease Education Program (NKDEP) does not endorse the use of the MDRD equation for patients that are not between the ages of 18 and 70, are , have extremes of body size, muscle mass, or nutritional status, or are non- or non-. According to the National Kidney Foundation, irrespective of diagnosis, the stage of the disease is based on the level of kidney function: Stage Description GFR(mL/min/1.73 m(2)) 1 Kidney damage with normal or decreased GFR 90 2 Kidney damage with mild decrease in GFR 60-89 3 Moderate decrease in GFR 30-59 4 Severe decrease in GFR 15-29 5 Kidney failure <15 (or dialysis) 27 Desirable <150 Borderline high 150-199 High 200-499 Very High >500 28 Desirable <200 Borderline high 200-239 High >239 29 Low <40 Desirable: 40-60 High: >60 30 Desirable: <100 mg/dL Near Optimal: 100-129 mg/dL Borderline High: 130-159 mg/dL High: 160-189 mg/dL Very High: >189 mg/dL 31 Desirable <150 Borderline high 150-199 High 200-499 Very High >500 32 Desirable <200 Borderline high 200-239 High >239 33 Low <40 Desirable: 40-60 High: >60 34 Desirable: <100 mg/dL Near Optimal: 100-129 mg/dL Borderline High: 130-159 mg/dL High: 160-189 mg/dL Very High: >189 mg/dL 35 Because ethnic data is not always readily available, this report includes an eGFR for both -Americans and non- Americans. The National Kidney Disease Education Program (NKDEP) does not endorse the use of the MDRD equation for patients that are not between the ages of 18 and 70, are , have extremes of body size, muscle mass, or nutritional status, or are non- or non-. According to the National Kidney Foundation, irrespective of diagnosis, the stage of the disease is based on the level of kidney function: Stage Description GFR(mL/min/1.73 m(2)) 1 Kidney damage with normal or decreased GFR 90 2 Kidney damage with mild decrease in GFR 60-89 3 Moderate decrease in GFR 30-59 4 Severe decrease in GFR 15-29 5 Kidney failure <15 (or dialysis) 36 Desirable <150 Borderline high 150-199 High 200-499 Very High >500 37 Desirable <200 Borderline high 200-239 High >239 38 Low <40 Desirable: 40-60 High: >60 39 Desirable: <100 mg/dL Near Optimal: 100-129 mg/dL Borderline High: 130-159 mg/dL High: 160-189 mg/dL Very High: >189 mg/dL 40 PT IS FASTING 41 Because ethnic data is not always readily available, this report includes an eGFR for both -Americans and non- Americans. The National Kidney Disease Education Program (NKDEP) does not endorse the use of the MDRD equation for patients that are not between the ages of 18 and 70, are , have extremes of body size, muscle mass, or nutritional status, or are non- or non-. According to the National Kidney Foundation, irrespective of diagnosis, the stage of the disease is based on the level of kidney function: Stage Description GFR(mL/min/1.73 m(2)) 1 Kidney damage with normal or decreased GFR 90 2 Kidney damage with mild decrease in GFR 60-89 3 Moderate decrease in GFR 30-59 4 Severe decrease in GFR 15-29 5 Kidney failure <15 (or dialysis) 42 Desirable <150 Borderline high 150-199 High 200-499 Very High >500 43 Desirable <200 Borderline high 200-239 High >239 44 Low <40 Desirable: 40-60 High: >60 45 Desirable: <100 mg/dL Near Optimal: 100-129 mg/dL Borderline High: 130-159 mg/dL High: 160-189 mg/dL Very High: >189 mg/dL 46 PT IS FASTING 47 Because ethnic data is not always readily available, this report includes an eGFR for both -Americans and non- Americans. The National Kidney Disease Education Program (NKDEP) does not endorse the use of the MDRD equation for patients that are not between the ages of 18 and 70, are , have extremes of body size, muscle mass, or nutritional status, or are non- or non-. According to the National Kidney Foundation, irrespective of diagnosis, the stage of the disease is based on the level of kidney function: Stage Description GFR(mL/min/1.73 m(2)) 1 Kidney damage with normal or decreased GFR 90 2 Kidney damage with mild decrease in GFR 60-89 3 Moderate decrease in GFR 30-59 4 Severe decrease in GFR 15-29 5 Kidney failure <15 (or dialysis) 48 Because ethnic data is not always readily available, this report includes an eGFR for both -Americans and non- Americans. The National Kidney Disease Education Program (NKDEP) does not endorse the use of the MDRD equation for patients that are not between the ages of 18 and 70, are , have extremes of body size, muscle mass, or nutritional status, or are non- or non-. According to the National Kidney Foundation, irrespective of diagnosis, the stage of the disease is based on the level of kidney function: Stage Description GFR(mL/min/1.73 m(2)) 1 Kidney damage with normal or decreased GFR 90 2 Kidney damage with mild decrease in GFR 60-89 3 Moderate decrease in GFR 30-59 4 Severe decrease in GFR 15-29 5 Kidney failure <15 (or dialysis) 49 Because ethnic data is not always readily available, this report includes an eGFR for both -Americans and non- Americans. The National Kidney Disease Education Program (NKDEP) does not endorse the use of the MDRD equation for patients that are not between the ages of 18 and 70, are , have extremes of body size, muscle mass, or nutritional status, or are non- or non-. According to the National Kidney Foundation, irrespective of diagnosis, the stage of the disease is based on the level of kidney function: Stage Description GFR(mL/min/1.73 m(2)) 1 Kidney damage with normal or decreased GFR 90 2 Kidney damage with mild decrease in GFR 60-89 3 Moderate decrease in GFR 30-59 4 Severe decrease in GFR 15-29 5 Kidney failure <15 (or dialysis) [address] Granger 51 SEE RESULT BELOW Name: KHLOE FERRERA : [address]: Alexandra GOSS Acct: [id number] Unit: [id number] AGE: 55 Location: [facility] Re02/22/16 SEX: F Status: REG REF SPEC: [id number] [place]: 02/22/[address]: Alexandra GOSS REQ: [id number] RECD: 02/22/16 STATUS: RES _ SOURCE: STOOL SPDESC: ORDERED: C. diff PCR Procedure Result Reported Site Stool Specimen Description PENDING C. difficile PCR Final 02/22/16- 1032 ML Organism 1 027 Presumptive NEGATIVE Organism 2 Toxigenic C.diff POSITIVE * ML - MAIN LAB ([facility]) . END OF REPORT * ML=Testing performed at Main Lab DEPARTMENT OF PATHOLOGY, [address] [place] [address] Antonio Rivera M.D. Director [facility] # [id number] 52 >100 to <200 pg/mL: likely compensated congestive heart failure (CHF) 200 to 400 pg/mL: likely moderate CHF >400 pg/mL: likely moderate to severe CHF 53 Because ethnic data is not always readily available, this report includes an eGFR for both -Americans and non- Americans. The National Kidney Disease Education Program (NKDEP) does not endorse the use of the MDRD equation for patients that are not between the ages of 18 and 70, are , have extremes of body size, muscle mass, or nutritional status, or are non- or non-. According to the National Kidney Foundation, irrespective of diagnosis, the stage of the disease is based on the level of kidney function: Stage Description GFR(mL/min/1.73 m(2)) 1 Kidney damage with normal or decreased GFR 90 2 Kidney damage with mild decrease in GFR 60-89 3 Moderate decrease in GFR 30-59 4 Severe decrease in GFR 15-29 5 Kidney failure <15 (or dialysis) 54 Low risk: <1.00 Average risk: 1.00-3.00 High risk: >3.00 55 FASTING 10 HOUR 56 FASTING 10 HOUR 57 REFERENCE VALUE <=1.0 (Negative) Test Performed by: [place] [address] Industrial Machinery Mechanic: Amrajit Richards II, M.D., Ph.D. 58 Test Performed by: [place] [address] Industrial Machinery Mechanic: Amarjit Richards II, M.D., Ph.D. 59 Desirable <150 Borderline high 150-199 High 200-499 Very High >500 60 Desirable <200 Borderline high 200-239 High >239 61 Low <40 Desirable: 40-60 High: >60 62 Desirable: <100 mg/dL Near Optimal: 100-129 mg/dL Borderline High: 130-159 mg/dL High: 160-189 mg/dL Very High: >189 mg/dL 63 Because ethnic data is not always readily available, this report includes an eGFR for both -Americans and non- Americans. The National Kidney Disease Education Program (NKDEP) does not endorse the use of the MDRD equation for patients that are not between the ages of 18 and 70, are , have extremes of body size, muscle mass, or nutritional status, or are non- or non-. According to the National Kidney Foundation, irrespective of diagnosis, the stage of the disease is based on the level of kidney function: Stage Description GFR(mL/min/1.73 m(2)) 1 Kidney damage with normal or decreased GFR 90 2 Kidney damage with mild decrease in GFR 60-89 3 Moderate decrease in GFR 30-59 4 Severe decrease in GFR 15-29 5 Kidney failure <15 (or dialysis) 64 Results suggest response to immunization or prior exposure to the virus. -- REFERENCE VALUE -- Vaccinated: Positive (>=1.1 AI) Unvaccinated: Negative (<=0.8 AI) 65 Test Performed by: [place] [address] Industrial Machinery Mechanic: Rocky Siddiqui III, M.D. 66 Results suggest response to immunization or prior exposure to the virus. -- REFERENCE VALUE -- Vaccinated: Positive (>=1.0 AI) Unvaccinated: Negative (<=0.7 AI) 67 Test Performed by: [place] [address] Industrial Machinery Mechanic: Rocky Siddiqui III, M.D. 68 Results suggest response to immunization or prior exposure to the virus. -- REFERENCE VALUE -- Vaccinated: Positive (>=1.1 AI) Unvaccinated: Negative (<=0.8 AI) 69 Test Performed by: [place] [address] Industrial Machinery Mechanic: Rocky Siddiqui III, M.D. Procedures Date Code Description Status 09/16/2018 68528 EKG Tracing & Interpretation Completed 09/15/2018 92264 Pace Maker Eval W/Iterative Adjment Dual Lead Completed 09/15/2018 14798 Pace Maker Eval W/Iterative Adjment Dual Lead Completed 11/29/2017 42949 Pace Maker Eval W/Iterative Adjment Dual Lead Completed 11/29/2017 43574 Pace Maker Eval W/Iterative Adjment Dual Lead Completed 10/15/2017 76718 EKG Tracing & Interpretation Completed 06/11/2017 44366 Pace Maker Eval W/Iterative Adjment Dual Lead Completed 04/30/2017 50507 EKG Tracing & Interpretation Completed 04/05/2017 00729 Catheter Placement Arterial System Init 3RD Order Completed Abdom/Pelv/Low 04/05/2017 47302 Angio Extremity, Bilateral Completed 04/05/2017 51737 Ultrasound Guidance For Vascular Access Completed 04/05/2017 87376 Moderate Sedation Services; Same Phys Intl 15 Mins; PT Completed >=5 Years 04/05/2017 91939 Moderate Sedation Services; Same Phys Each Additional Completed 15 Mins 02/12/2017 36314 Pace Maker Eval W/Iterative Adjment Dual Lead Completed 11/01/2016 77849 Pace Maker Eval W/Iterative Adjment Dual Lead Completed 10/23/2016 76703 EKG Tracing & Interpretation Completed 07/31/2016 35301 Pace Maker Eval W/Iterative Adjment Dual Lead Completed 07/24/2016 71438 EKG Tracing & Interpretation Completed 07/20/2016 75993 Pace Maker Eval W/Iterative Adjment Dual Lead Completed 06/26/2016 60144 EKG, Interpretation Only Completed 06/26/2016 51232 Pace Maker Eval W/Iterative Adjment Dual Lead Completed 06/25/2016 50603 EKG, Interpretation Only Completed 06/25/2016 57864 Perm Pacemaker Av Sequential Atrial And Ventricular Completed 06/07/2016 38519 EKG Tracing & Interpretation Completed 05/24/2016 31085 Sleep Study Unattended,HRT Rate,Oxygen Sat,Resp Completed Effort/Airflow 03/23/2016 16478 Treadmill Interp/Report Only Completed 03/23/2016 51631 Stress Test Supervsn W/Out I/R Completed 03/06/2016 29474 EKG Tracing & Interpretation Completed 03/01/2016 07826 Stress Test Supervsn W/Out I/R Completed 03/01/2016 16465 Treadmill Interp/Report Only Completed 03/01/2016 63291 Stress ECHO Interpretation/Report Hospital Completed 02/29/2016 [id number] Colonoscopy Completed 02/29/2016 00624419 Mammogram Completed 02/02/2016 81306 EKG Tracing & Interpretation Completed 01/25/2016 87229 Holter Monitor Review (24 hr)dr review & interp only Completed 01/23/2016 43563 ECG Monitor/Recording W/Visual Superimposition Scanning Completed 12/27/2015 86938 ECHO Transthorasic Realtime 2D W Doppler & Color Flow Completed Hosp 12/27/2015 88072 EKG, Interpretation Only Completed 11/06/2012 16810 EKG, Interpretation Only Completed Encounters Type Date Location Provider Dx Diagnosis Office Visit 01/08/2019 [facility] Angelica Chavira, N95.0 Postmenopausal 4:00p [facility] bleeding R31.9 Hematuria, unspecified Office Visit 10/17/2018 2:00p [facility] Angelica Chavira, N95.0 Postmenopausal [facility] bleeding R31.9 Hematuria, unspecified Office Visit 09/30/2018 Aliza Kline E78.5 Hyperlipidemia, 8:30a Cardiology Of Joe N.PMary unspecified [facility] I10 Essential (primary) hypertension I49.5 Sick sinus syndrome Office Visit 09/26/2018 8:00a [facility] Brandi Pickard, N95.0 Postmenopausal Clinic of [place] [facility] bleeding N95.1 Menopausal and female climacteric states R10.2 Pelvic and perineal pain Z12.31 Encntr screen mammogram for malignant neoplasm of breast Office Visit 09/19/2018 2:20p [facility] Internal Marlyn Orourke, J06.9 [facility], unspecified N95.0 Postmenopausal bleeding Office Visit 09/16/2018 1:40p [facility] [place] I48.0 Paroxysmal atrial Martin Granger fibrillation I49.5 Sick sinus syndrome Z95.0 Presence of cardiac pacemaker E78.5 Hyperlipidemia, unspecified R73.03 Prediabetes I10 Essential (primary) hypertension Office Visit 01/27/2018 [facility] Internal Ta R73.9 Hyperglycemia, 9:40a Clifford Joseph M.D. unspecified Suite R E78.5 Hyperlipidemia, unspecified I48.0 Paroxysmal atrial fibrillation Z11.59 Encounter for screening for other viral diseases R73.03 Prediabetes F33.0 Major depressive disorder, recurrent, mild E66.9 Obesity, unspecified Office Visit 12/23/2017 2:20p [facility] Internal Christiane Gonzalez, J20.9 Acute bronchitis, Medicine - [facility] N.P. unspecified Office Visit 12/11/2017 10:30a [facility] Yue Diaz, I49.5 Sick sinus N.P. syndrome I48.0 Paroxysmal atrial fibrillation Z95.0 Presence of cardiac pacemaker R03.0 Elevated blood-pressure reading, w/o diagnosis of htn E78.5 Hyperlipidemia, unspecified Office Visit 10/15/2017 8:00a [facility] Dermatology Chicho Flaherty, L82.1 Other seborrheic MD keratosis L20.89 Other atopic dermatitis D22.62 Melanocytic nevi of left upper limb, including shoulder Office Visit 10/15/2017 [facility] [place] R03.0 Elevated 9:00a Cardiology Martin Granger blood-pressure reading, w/o diagnosis of htn E78.5 Hyperlipidemia, unspecified I48.0 Paroxysmal atrial fibrillation I49.5 Sick sinus syndrome I70.211 [place] arteries of extrm w [place]t [place], right leg E66.9 Obesity, unspecified Office Visit 10/10/2017 8:20a [facility] Internal Ta Joseph, J06.9 Acute upper Medicine - M.D. respiratory Suite R infection, unspecified I10 Essential (primary) hypertension E78.5 Hyperlipidemia, unspecified F33.0 Major depressive disorder, recurrent, mild I48.0 Paroxysmal atrial fibrillation E87.6 Hypokalemia L98.9 Disorder of the skin and subcutaneous tissue, unspecified B37.0 Candidal stomatitis Office Visit 07/09/2017 1:40p [facility] Internal Taaster Joseph, I10 Essential (primary) Medicine - M.D. hypertension Suite R E78.5 Hyperlipidemia, unspecified E66.9 Obesity, unspecified F33.0 Major depressive disorder, recurrent, mild Z68.33 Body mass index (BMI) 33.0-33.9, adult Z23 Encounter for immunization Office Visit 06/06/2017 3:00p [facility] Alexandra Francisco, I48.0 Paroxysmal atrial PA fibrillation I10 Essential (primary) hypertension E78.00 Pure hypercholesterolemia, unspecified E66.9 Obesity, unspecified Office Visit 04/30/2017 10:40a [facility] [place] I10 Essential (primary) Martin Granger hypertension I48.0 Paroxysmal atrial fibrillation I49.5 Sick sinus syndrome E78.00 Pure hypercholesterolemia, unspecified I73.89 Other specified peripheral vascular diseases E78.5 Hyperlipidemia, unspecified E66.9 Obesity, unspecified R94.31 Abnormal electrocardiogram [ECG] [EKG] Z95.0 Presence of cardiac pacemaker Office Visit 04/11/2017 10:00a [facility] Internal [place] Jake, I10 Essential (primary) Medicine - M.DMary hypertension Suite R I48.0 Paroxysmal atrial fibrillation E78.2 Mixed hyperlipidemia F32.0 Major depressive disorder, single episode, mild Office Visit 01/08/2017 10:00a [facility] Jake, I10 Essential (primary) Medicine - M.DMary hypertension Suite R I48.0 Paroxysmal atrial fibrillation E78.2 Mixed hyperlipidemia B37.0 Candidal stomatitis Office 12/28/2016 Delroy Singh, E78.00 Pure hypercholesterolemia, Visit 8:30a Cardiology PA unspecified Z95.0 Presence of cardiac pacemaker I73.89 Other specified peripheral vascular diseases I10 Essential (primary) hypertension I48.0 Paroxysmal atrial fibrillation Office Visit 11/08/2016 2:30p [facility] Grabiel G. I73.89 Other specified Medicine Of [facility] Martin Strickland peripheral vascular diseases Office Visit 10/23/2016 8:40a [facility] [place] I10 Essential Cardiology Martin Granger (primary) hypertension Z95.0 Presence of cardiac pacemaker G47.30 Sleep apnea, unspecified I49.5 Sick sinus syndrome E78.00 Pure hypercholesterolemia, unspecified Office Visit 10/17/2016 10:30a [facility] Wen Hernandezbull, Z11.1 Encounter for Home N.P. screening for respiratory tuberculosis Z02.1 Encounter for pre-employment examination Office Visit 10/09/2016 10:00a [facility] Jake, I10 Essential (primary) Medicine - MMaryDMary hypertension Suite R E78.00 Pure hypercholesterolemia, unspecified F32.0 Major depressive disorder, single episode, mild K21.9 Gastro-esophageal reflux disease without esophagitis B37.3 Candidiasis of vulva and vagina R73.9 Hyperglycemia, unspecified Z23 Encounter for immunization Office Visit 08/09/2016 11:30a [facility] Alexandra Singh, I48.0 Paroxysmal atrial PA fibrillation Z95.0 Presence of cardiac pacemaker E66.9 Obesity, unspecified I10 Essential (primary) hypertension E78.00 Pure hypercholesterolemia, unspecified Office Visit 07/24/2016 8:20a [facility] [place] I48.0 Paroxysmal atrial Martin Granger fibrillation E66.9 Obesity, unspecified I10 Essential (primary) hypertension F32.0 Major depressive disorder, single episode, mild E78.00 Pure hypercholesterolemia, unspecified Office Visit 07/09/2016 1:00p [facility] Internal Ta Joseph, I10 Essential (primary) Medicine - Martin hypertension Suite R I48.0 Paroxysmal atrial fibrillation K21.9 Gastro-esophageal reflux disease without esophagitis E78.2 Mixed hyperlipidemia Office Visit 06/12/2016 Pulmonology And Tesha G47.33 Obstructive sleep 8:30a Sleep Services Of REJI Saldaña, LOS, apnea (adult) [facility] 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) E66.9 Obesity, unspecified F33.0 Major depressive disorder, recurrent, mild Z68.34 Body mass index (BMI) 34.0-34.9, adult Office Visit 06/07/2016 9:40a [facility] [place] I48.0 Paroxysmal atrial Martin Granger fibrillation I10 Essential (primary) hypertension I49.5 Sick sinus syndrome G47.33 Obstructive sleep apnea (adult) (pediatric) Office Visit 05/11/2016 10:15a Pulmonology And Shreya G47.9 Sleep disorder, Sleep Services Of MD Haja unspecified [facility] E66.09 Other obesity due to excess calories I48.0 Paroxysmal atrial fibrillation I10 Essential (primary) hypertension Office Visit 04/12/2016 10:15a [facility] Sandeep Lees I48.0 Paroxysmal atrial Of [facility] Martin Bang fibrillation I49.5 Sick sinus syndrome Office Visit 04/06/2016 9:45a [facility] Alexandra Singh I48.0 Paroxysmal atrial Of [facility] ANA PAULA fibrillation I49.5 Sick sinus syndrome I10 Essential (primary) hypertension Office Visit 03/29/2016 8:20a [facility] Internal Ta I48.0 Paroxysmal atrial Medicine - Martin Joseph fibrillation Suite R F33.0 Major depressive disorder, recurrent, mild I10 Essential (primary) hypertension E78.2 Mixed hyperlipidemia Office Visit 03/23/2016 10:30a [facility] West FMary R07.9 Chest pain, Martin Granger unspecified I49.5 Sick sinus syndrome R06.00 Dyspnea, unspecified Office Visit 03/06/2016 2:40p [facility] West F. I10 Essential (primary) Martin Granger hypertension R07.9 Chest pain, unspecified I48.0 Paroxysmal atrial fibrillation A04.7 Enterocolitis due to Clostridium difficile I49.5 Sick sinus syndrome Office Visit 03/01/2016 2:08p [facility] West FMary I48.0 Paroxysmal atrial Martin Granger fibrillation I49.5 Sick sinus syndrome Office Visit 02/29/2016 9:20a [facility] Internal Ta Joseph, F33.0 Major depressive Medicine - MJosi disorder, Suite R recurrent, mild I10 Essential (primary) hypertension R07.9 Chest pain, unspecified I48.0 Paroxysmal atrial fibrillation A04.7 Enterocolitis due to Clostridium difficile Office Visit 02/22/2016 9:40a [facility] Internal Angel Rutledge, F33.0 Major depressive Medicine - Suite REFINISHER disorder, R recurrent, mild I48.0 Paroxysmal atrial fibrillation A04.7 Enterocolitis due to Clostridium difficile Office Visit 02/16/2016 3:30p [facility] Alexandra Singh, I48.0 Paroxysmal atrial Of [facility] PA fibrillation F33.0 Major depressive disorder, recurrent, mild I10 Essential (primary) hypertension R19.7 Diarrhea, unspecified Office Visit 02/07/2016 2:40p [facility] Internal Ta I48.0 Paroxysmal atrial Medicine - Martin Joseph fibrillation Suite R F33.0 Major depressive disorder, recurrent, mild Office Visit 02/02/2016 10:00a [facility] West FMary I49.5 Sick sinus Martin Granger syndrome I10 Essential (primary) hypertension E78.2 Mixed hyperlipidemia E66.9 Obesity, unspecified I20.8 Other forms of angina pectoris R06.00 Dyspnea, unspecified G47.9 Sleep disorder, unspecified Office Visit 01/19/2016 2:00p [facility] Internal Ta I48.91 Unspecified atrial Medicine Collin Joseph M.D. fibrillation Suite R I10 Essential (primary) hypertension M79.1 Myalgia K21.9 Gastro-esophageal reflux disease without esophagitis F32.9 Major depressive disorder, single episode, unspecified E78.2 Mixed hyperlipidemia Z00.00 Encntr for general adult medical exam w/o abnormal findings Z12.11 Encounter for screening for malignant neoplasm of colon Z79.01 halfway (current) use of anticoagulants Office Visit 01/05/2016 3:20p [facility] Internal Ta I48.91 Unspecified atrial Clifford Joseph M.D. fibrillation Suite R K29.60 Other gastritis without bleeding R25.2 Cramp and spasm I10 Essential (primary) hypertension Z12.39 Encounter for oth screening for malignant neoplasm of breast M79.1 Myalgia Z79.01 halfway (current) use of anticoagulants Office Visit 12/28/2015 [facility] Evaristo I48.91 Unspecified 1:07p Assoc,nicci Love M.D. atrial Hospitalists fibrillation Z72.0 Tobacco use I10 Essential (primary) hypertension Office Visit 12/27/2015 1:07p [facility] Brandi Pickard I48.91 Unspecified atrial Assoc,pc N.P. fibrillation Hospitalists Z72.0 Tobacco use I10 Essential (primary) hypertension Office Visit 10/20/2015 9:00a [facility] Wen Cruz, Z02.1 Encounter for Home N.P. pre-employment examination Z11.1 Encounter for screening for respiratory tuberculosis Office Visit 09/29/2014 10:00a [facility] Wen Cruz, V70.3 Examination Other Home N.P. Medical For Administrative Purpose V74.1 Screening Examination Pulmonary Tuberculosis Office Visit 10/19/2013 [place] Kylie V70.3 Examination Other 1:00p Snf Shahab, N.P. Medical For Administrative Purpose V74.1 Screening Examination Pulmonary Tuberculosis V04.81 Need For Prophylactic Vaccination & Inoculation/Influenza Office Visit 11/06/2012 10:56a [facility] Kwasi 434.11 Cerebral Assoc,nicci Ogden M.D. Embolism W/ Hospitalists Cerebral Infarc 401.9 Hypertension Unspec 305.1 Tobacco Use Disorder Office Visit 11/05/2012 11:03a [facility] Carmine SMary 434.91 Occlusion Services Of Ty Richter M.D. Cerebral Artery Unspec W/ Cerebral Infarc Office Visit 11/05/2012 10:56a [facility] Lyndon 434.11 Cerebral Assoc,pc Seth Martin. Embolism W/ Hospitalists Cerebral Infarc 401.9 Hypertension Unspec 305.1 Tobacco Use Disorder Plan of Treatment Future Appointment(s):02/26/2020 3:00 pm - Jerry Love NP at [facility] Internal Medicine - [facility]04/02/2019 3:30 pm - Ica Pacer Schedule at [facility]05/05/2019 3:20 pm - [place] M.D. at [facility]2018 - Jerry Love NPF33.0 Major depressive disorder, recurrent, mildComments:I have renewed the sertraline.Follow up:f/u 1 yr PE and PRNJ30.89 Other allergic rhinitisNew Medication:Fluticasone Propionate 50 mcg/Act - 2 sprays each nostril qd.Z12.31 Encounter for screening mammogram for malignant neoplasm ofNew Xrays:Mammogram Screening Ruben, Ordered: 02/18/19Z12.11 Encounter for screening for malignant neoplasm of colonNew Labs:Hemosure Non-Medicare, Ordered : 02/18/19G56.00 Carpal tunnel syndrome, unspecified upper limbComments:If you decide you want to try the night time splints please let me know.Z71.89 Other specified counselingComments:At age 50- screening for colon cancer is recommended.Options include colonoscopy, the Cologuard and the Hemosure that we discussed.If you decide you would like to have one of these done please let me know.Immunizations:Flu shot yearly.Shingles vaccine (Shingrix) at age 50. Available at pharmacies.SCREENINGMammogram yearly Fasting cholesterol and blood glucose yearlyLung cancer screening: Low dose CT scan recommended for all people who have a 30 pack year history and have quit within 15 years.
[2019-03-12 18:05] VITALS: BP 158/82
--- NOTE | 2019-03-12 18:14 | UC ---
Respiratory Complaint HPI - HPI Summary HPI Summary: 58 yo female presents with dry cough and post nasal drip for the last 7-10 days. Over the last 2-3 days has had sinus pain/pressure/congestion and right ear pain that has gotten worse. She has been using flonase with no relief. Denies fever, chills, sore throat, SOB. She is a former smoker. - History of Current Complaint Chief Complaint: UCRespiratory Stated Complaint: URI Time Seen by Provider: 03/12/19 18:14 Hx Obtained From: Patient Hx Last Menstrual Period: spotting now Onset/Duration: Gradual Onset Severity Initially: Mild Severity Currently: Mild Pain Intensity: 3 Pain Scale Used: 0-10 Numeric - Allergies/Home Medications Allergies/Adverse Reactions: Allergies Allergy/AdvReac Type Severity Reaction Status Date / Time cephalexin Allergy See Comment Verified 03/12/19 18:05 Ovbtwim-Hiv-Udu Reductase Allergy Pain Verified 03/12/19 18:05 Inhibitor contrast dye Allergy Hives Uncoded 03/12/19 18:05 Home Medications: Home Medications Fluticasone NASAL SPRAY 50MCG* [Flonase NASAL SPRAY 50MCG*] 03/12/19 [History] PMH/Surg Hx/FS Hx/Imm Hx - Additional Past Medical History Additional PMH: Afib Cardiovascular History: Hypertension Psychological History: Anxiety, Depression Other History Of: Anticoagulant Therapy - LOW DOSE ASPIRIN SINCE 2012 - Surgical History Surgical History: Yes Surgery Procedure, Year, and Place: Choleycystectomy, 2006 - Family History Known Family History: Positive: Cardiac Disease - BOTH PARENTS DIES ME AGE 65, Other - MGM - PANCREATIC CANCER - Social History Occupation: Employed Full-time Lives: With Family Alcohol Use: Occasionally Substance Use Type: None Substance Use Comment - Amount & Last Used: 1-2 TIMES A MONTH Smoking Status (MU): Former Smoker Type: Cigarettes Amount Used/How Often: 15 cigs per day Length of Time of Smoking/Using Tobacco: 40+years Have You Smoked in the Last Year: Yes When Did the Patient Quit Smoking/Using Tobacco: Quit 12/27/15 Household Exposure Type: Cigarettes - Immunization History Most Recent Influenza Vaccination: uknown Most Recent Tetanus Shot: 2012 Most Recent Pneumonia Vaccination: declines Review of Systems All Other Systems Reviewed And Are Negative: Yes Constitutional: Positive: Negative Skin: Positive: Negative Eyes: Positive: Negative ENT: Positive: Ear Ache, Nasal Discharge, Sinus Congestion, Sinus Pain/ Tenderness Respiratory: Positive: Cough Cardiovascular: Positive: Negative Gastrointestinal: Positive: Negative Neurovascular: Positive: Negative Neurological: Positive: Negative Psychological: Positive: Negative Physical Exam - Summary Physical Exam Summary: GENERAL: NAD. WDWN. No pain distress. SKIN: No rashes, sores, lesions, or open wounds. HEENT: Head: AT/NC Eyes: EOM intact. Conjunctiva clear without inflammation or discharge. Ears: Hearing grossly normal. RIGHT TM with mild erythema and bulging. No canal edema or drainage. LEFT TM WNL Nose: Nasal mucosa mildly swollen and erythematous without discharge. TTP maxillary sinus. Positive post nasal drip Throat: Posterior oropharynx without exudates, erythema, or tonsillar enlargement. Uvula midline. NECK: Supple. Nontender. No lymphadenopathy. CHEST: CTAB. No r/r/w. No accessory muscle use. Breathing comfortably and in no distress. CV: RRR. Without m/r/g. Pulses intact. NEURO: Alert. PSYCH: Age appropriate behavior. Triage Information Reviewed: Yes Vital Signs: Initial Vital Signs Temp 98.4 F 03/12/19 18:01 Pulse 75 03/12/19 18:01 Resp 16 03/12/19 18:01 BP 158/82 03/12/19 18:01 Pulse Ox 100 03/12/19 18:01 Vital Signs Reviewed: Yes Respiratory Course/Dx - Course Course Of Treatment: Sinusitis. Otitis media - Differential Dx/Diagnosis Provider Diagnosis: Sinusitis, Otitis media Discharge - Sign-Out/Discharge Documenting (check all that apply): Patient Departure All imaging exams completed and their final reports reviewed: No Studies - Discharge Plan Condition: Stable Disposition: HOME Prescriptions: Amoxicillin PO (*) [Amoxicillin 875 MG (*)] 875 mg PO BID #14 tab Fluconazole 150 MG TAB* [Diflucan 150 MG TAB*] 150 mg PO ONCE PRN #1 tablet PRN Reason: Itching Patient Education Materials: Sinusitis (ED), Ear Infection (ED) Referrals: Jerry Lvoe CHEMICAL PROCESS OPERATOR [Primary Care Provider] - Additional Instructions: If you develop a fever, shortness of breath, chest pain, new or worsening symptoms - please call your PCP or go to the ED immediately. Your blood pressure was high at todays visit. Please see your primary provider within 4 weeks for recheck and re-evaluation. - Billing Disposition and Condition Condition: STABLE Disposition: Home - Attestation Statements Provider Attestation: Per institutional requirements, I have reviewed the chart, however, I was not consulted specifically or made aware of this patient by the midlevel provider. I did not personally evaluate, interact with , or disposition this patient.
== END 2019-03-12 18:30 | disposition home or self-care (01) ==
LOC: UCEAST 17:55
DX: J32.9 Chronic sinusitis, unspecified (principal); H66.91 Otitis media, unspecified, right ear; I10 Essential (primary) hypertension; F41.9 Anxiety disorder, unspecified; F32.9 Major depressive disorder, single episode, unspecified; Z79.82 Long term (current) use of aspirin
CPT/HCPCS: 99212; G0463

== ENCOUNTER 2019-03-28 09:15 | Emergency (ER) | payer SELFPAY ==
[2019-03-28 09:40] VITALS: BP 144/83
--- NOTE | 2019-03-28 10:26 | UC ---
Throat Pain/Nasal Neil HPI - HPI Summary HPI Summary: 58-year-old woman comes in with a chief complaint of more than 2 weeks of upper respiratory tract infection symptoms. She was seen here on March 12, 2019 and diagnosed with sinusitis and ear infection and treated with amoxicillin 875 mg by mouth twice a day 7 days. Also started Flonase which did help some with her symptoms. She did feel better for a few days and then things got worse again. She's having a right frontal headache and both of her ears hurt. She's having green rhinorrhea and also some cough and chest congestion bringing up green phlegm. Last couple days she's had some pain in her posterior lower thoracic back. Denies any anterior abdominal pain. Both her legs have been achy. No calf swelling. No history of deep venous thrombosis or pulmonary embolus. She does have a history of a stroke and atrial fibrillation and she is on Eliquis. - History of Current Complaint Chief Complaint: UCRespiratory Stated Complaint: URI Time Seen by Provider: 03/28/19 09:53 Hx Last Menstrual Period: spotting now Pain Intensity: 5 - Allergies/Home Medications Allergies/Adverse Reactions: Allergies Allergy/AdvReac Type Severity Reaction Status Date / Time cephalexin Allergy See Comment Verified 03/28/19 09:40 Fipjzxy-Kgl-Nyd Reductase Allergy Pain Verified 03/28/19 09:40 Inhibitor contrast dye Allergy Hives Uncoded 03/28/19 09:40 PMH/Surg Hx/FS Hx/Imm Hx Previously Healthy: Yes Cardiovascular History: Hypertension, Atrial Fibrillation GI/ History: Gastroesophageal Reflux Neurological History: CVA Other History Of: Anticoagulant Therapy - LOW DOSE ASPIRIN SINCE 2012 - Surgical History Surgical History: Yes Surgery Procedure, Year, and Place: Choleycystectomy, 2006 - Family History Known Family History: Positive: Cardiac Disease - BOTH PARENTS DIES [place] AGE 65, Other - MGM - PANCREATIC CANCER - Social History Alcohol Use: Weekly Substance Use Type: None Substance Use Comment - Amount & Last Used: 1-2 TIMES A MONTH Smoking Status (MU): Former Smoker Type: Cigarettes Amount Used/How Often: 15 cigs per day Length of Time of Smoking/Using Tobacco: 40+years Have You Smoked in the Last Year: Yes When Did the Patient Quit Smoking/Using Tobacco: Quit 12/27/15 Household Exposure Type: Cigarettes - Immunization History Most Recent Influenza Vaccination: uknown Most Recent Tetanus Shot: 2013 Most Recent Pneumonia Vaccination: declines Review of Systems All Other Systems Reviewed And Are Negative: Yes Constitutional: Positive: Other - see hpi Skin: Positive: Negative Eyes: Positive: Negative ENT: Positive: Ear Ache, Nasal Discharge, Sinus Congestion, Sinus Pain/ Tenderness Respiratory: Positive: Cough, Other - see hpi Cardiovascular: Positive: Chest Pain - see hpi Gastrointestinal: Positive: Negative Motor: Positive: Negative Neurovascular: Positive: Negative Musculoskeletal: Positive: Myalgia. Negative: Edema Neurological: Positive: Headache Psychological: Positive: Negative Is Patient Immunocompromised?: No Physical Exam Triage Information Reviewed: Yes Appearance: No Pain Distress, Well-Nourished, Ill-Appearing - mild Vital Signs: Initial Vital Signs Temp 99.0 F 03/28/19 09:35 Pulse 84 03/28/19 09:35 Resp 18 03/28/19 09:35 BP 144/83 03/28/19 09:35 Pulse Ox 100 03/28/19 09:35 Vital Signs Reviewed: Yes Eye Exam: Normal Eyes: Positive: Conjunctiva Clear ENT: Positive: Pharyngeal erythema, Nasal congestion, Nasal drainage, TM bulging - b/l. Rt TM white; scarring verses pus Neck: Positive: Supple Respiratory: Positive: Lungs clear, Normal breath sounds, No respiratory distress Cardiovascular: Positive: RRR Abdomen Description: Positive: Nontender Musculoskeletal: Positive: Strength Intact, ROM Intact, No Edema - No calf swelling or tenderness Neurological: Positive: Alert Psychological: Positive: Age Appropriate Behavior Skin Exam: Normal Throat Pain/Nasal Course/Dx - Course Course Of Treatment: Patient Name: AMRITA MEEKS Medical Record#: [id number] Ordering Physician: Amarjit Mast MD Acct.#: [id number] : 1960 Age: 58 Sex: F Location: [facility] Exam Date: 03/28/19 1020 ADM Status: REG ER Order Information: CHEST PA LAT 2 [facility] Accession Number: [id number] CPT: 46335 INDICATION: Cough and congestion for the last 2 weeks. COMPARISON: September 15, 2018 TECHNIQUE: Dual energy PA and routine lateral views of the chest were obtained. REPORT: Elevated lung volumes and both diffuse mild prominence of the interstitial markings and patchy rarefaction of the mid to upper lung zone interstitial markings. No focal pulmonary lesion, compelling alveolar consolidation, pleural effusion, pneumothorax. RIGHT atrial and RIGHT ventricular level pacemaker leads. Negative for cardiomegaly. Unremarkable central pulmonary vasculature and mediastinal contours. IMPRESSION: #. Stigmata of obstructive lung disease. No acute pulmonary or cardiac process evident. <Electronically signed by Pedro aMrte MD in OV> 03/28/19 1048 I discussed the x-ray report with the patient. Clinically the patient has sinusitis otitis media and bronchitis. The bronchitis symptoms may be more due to postnasal drip. Plan is to treat with doxycycline her milligrams by mouth twice a day for 10 days. If her sinusitis is severe she may need a longer treatment than just 10 days. The doxycycline also would provide better coverage for bronchitis. Patient she get reevaluated if worse or any questions or concerns. - Differential Dx/Diagnosis Provider Diagnosis: Sinusitis, Otitis media, Bronchitis Discharge - Sign-Out/Discharge Documenting (check all that apply): Patient Departure All imaging exams completed and their final reports reviewed: Yes - Discharge Plan Condition: Stable Disposition: HOME Prescriptions: DOXYcycline CAP(*) [DOXYcycline 100MG CAP(*)] 100 mg PO BID #20 cap Patient Education Materials: Sinusitis (ED), Ear Infection (ED), Acute Bronchitis (ED) Referrals: Jerry Love, FOOD SERVICES COORDINATOR [Primary Care Provider] - Additional Instructions: FOLLOW UP WITH YOUR DOCTOR IF NOT COMPLETELY IMPROVED. GET RECHECKED SOONER IF YOUR CONDITION WORSENS OR ANY QUESTIONS OR CONCERNS. - Billing Disposition and Condition Condition: STABLE Disposition: Home
== END 2019-03-28 11:30 | disposition home or self-care (01) ==
LOC: UCEAST 09:15
DX: J40 Bronchitis, not specified as acute or chronic (principal); J32.9 Chronic sinusitis, unspecified; H66.93 Otitis media, unspecified, bilateral; I10 Essential (primary) hypertension; I48.91 Unspecified atrial fibrillation; K21.9 Gastro-esophageal reflux disease without esophagitis; Z86.73 Personal history of transient ischemic attack (TIA), and cerebral infarction without residual deficits; Z79.82 Long term (current) use of aspirin; Z87.891 Personal history of nicotine dependence
CPT/HCPCS: 71046; 99212; G0463

== ENCOUNTER 2019-10-05 21:29 | Emergency (ER) | payer OTHER ==
--- OUTSIDE RECORDS SUMMARY | 2019-10-05 21:42 | XMS REPORT | Continuity of Care Document ---
:1960 External Reference #:[id number] Author Name Yue Diaz N.P. (transmitted by agent of provider Ronna Murphy) Address [address] [place] [address] Care Team Providers Name Role Phone [place] MD - Cardiovascular Care Team Information Facilitator Disease Chicho Flaherty MD - Dermatology Care Team Information Facilitator Jerry Love NP - Internal Medicine Care Team Information Facilitator Problems Active Problems Provider Date Paroxysmal atrial [...] syndrome Tesha Saldaña DNP, RN, Onset: 06/12/2016 [facility] Peripheral vascular disease Grabiel Strickland M.D. Onset: 11/08/2016 Candidiasis of mouth Ta Joseph M.D. Onset: 01/08/2017 Mild major depression, single Ta Joseph M.D. Onset: 04/11/2017 episode Abnormal glucose level Ta Joseph M.D. Onset: 01/27/2018 Prediabetes Ta Joseph M.D. Onset: 01/27/2018 Social History Type Date Description Comments Sex Unknown Tobacco Use Start: Unknown End: Former Cigarette Smoker Unknown ETOH Use Occasionally consumes 4 oz approx 3 times wine a week Recreational Drug Use Denies Drug Use Tobacco Use Start: Unknown End: Patient is a former Unknown smoker Tobacco Use Start: Unknown quit 12/27/15 Smoking Status Reviewed: 09/15/19 quit 12/27/15 Exercise Type/Frequency Does not exercise Allergies, Adverse Reactions, Alerts Active Allergies Reaction Severity Comments Date Keflex yeast infection 01/05/2016 Lipitor Severe depression and myalgias 12/28/2016 symptoms Rosuvastatin Calcium nausea, memory Moderate 12/28/2016 Simvastatin Moderate 12/28/2016 Contrast Dye 06/06/2017 Cartia dizziness 08/25/2019 Lisinopril Cough Mild 08/25/2019 Amlodipine Dizziness, Hives, Mild 08/25/2019 Itching Medications Active Medications SIG Qnty Indications Ordering Date Provider Losartan Potassium 1 by mouth 30tabs I10 Yue Diaz, 09/15/2019 50mg every day N.P. Tablets Metoprolol Succinate ER 1/2 by mouth 30tabs I10 Yue Diaz, 05/15/2019 25mg every night N.P. Tablets ER 24HR Sphygmomanometer use as 1units I10 [place] 05/05/2019 Misc directed. Elkin M.D. Fluticasone Propionate 2 sprays each 16gm J30.89 Jerry Love NP 02/18/2019 nostril qd. 50mcg/Act Suspension Cpap for use while Unknown 06/05/2017 Device sleeping Potassium Chloride ER 1 tablet by 180tabs [place] 08/09/2016 20Meq mouth twice a [place]anger Tablets ER day Magnesium-Oxide 1 by mouth 100tabs [place] 02/16/2016 250mg Tablets every day [place]anger Eliquis take 1 tab by 180tabs R73.9 [place] 02/16/2016 5mg Tablets mouth every 12 [place]anger hours Famotidine take one tablet 60tabs Other Ordering 12/28/2015 20mg Tablets by mouth daily Provider Sertraline HCL take 1 tablet 180tabs F33.0 Jerry Love NP 25mg Tablets by mouth two times daily History Medications Irbesartan 1 by mouth 90tabs [place] 08/26/2019 - 75mg Tablets every day Martin Granger 09/15/2019 Valsartan 1 tab by mouth 90tabs R05 [place] 08/25/2019 - 80mg Tablets every day Martin Granger 08/26/2019 Amlodipine Besylate 1 by mouth 30tabs [place] 07/15/2019 - every day Martin Granger 08/25/2019 2.5mg Tablets Cartia XT 1 by mouth 30caps I10 [place] 05/05/2019 - 180mg Caps ER every day Martin Granger 05/15/2019 24HR Immunizations CPT Code Status Date Vaccine Reaction Lot # [id number] Given 07/09/2017 Influenza Virus Vaccine, no reaction, pt [id number] Quadrivalent, Split, tolerated well Preservative Free [id number] Given 10/09/2016 Tdap - [id number] Tetanus/Diptheria/Acellular Pertussis 26910 Given 05/11/2016 Influenza Virus Vaccine, Quadrivalent, Split, Preservative Free Vital Signs Date Vital Result Comment 09/15/2019 3:17pm Height 68 inches 5'8" Weight 187.00 lb Heart Rate 74 /min BP Systolic Sitting 182 mmHg Rue reg cuff BP Diastolic Sitting 108 mmHg Rue reg cuff BP Systolic Standing 176 mmHg Rue reg cuff BP Diastolic Standing 110 mmHg Rue reg cuff Respiratory Rate 18 /min BMI (Body Mass Index) 28.4 kg/m2 Ejection Fraction 60-65% ECHO 12/27/2015 08/25/2019 3:31pm Height 68 inches 5'8" Weight 185.38 lb without shoes Heart Rate 82 /min left radial regular BP Systolic Sitting 140 mmHg ule reg cuff BP Diastolic Sitting 80 mmHg ule reg cuff BP Systolic Standing 140 mmHg ule reg cuff BP Diastolic Standing 80 mmHg ule reg cuff BMI (Body Mass Index) 28.2 kg/m2 Ejection Fraction 60-65% Echocardiogram 12/27/2015 Results Description No Information Available Procedures Date Code Description Status 08/25/2019 65494 EKG Tracing & Interpretation Completed 08/06/2019 03627 Pace Maker Maria Eal W/Iterative Adjment Dual Lead Completed 08/06/2019 51850 Pace Maker Eval W/Iterative Adjment Dual Lead Completed 07/15/2019 91801 Stress Test Completed 05/05/2019 87732 EKG Tracing & Interpretation Completed 04/02/2019 02476 Pace Maker Eval W/Iterative Adjment Dual Lead Completed 04/02/2019 76364 Pace Maker Eval W/Iterative Adjment Dual Lead Completed 02/29/2016 92868502 Colonoscopy Completed 02/29/2016 [id number] Mammogram Completed Medical Devices Description No Information Available Encounters Type Date Location Provider Dx Diagnosis Office Visit 09/15/2019 [facility] Yue Diaz, I10 Essential ( primary) 3:30p Of Clinical Tech N.P. hypertension I49.5 Sick sinus syndrome Z95.0 Presence of cardiac pacemaker E78.00 Pure hypercholesterolemia, unspecified G47.33 Obstructive sleep apnea (adult) (pediatric) Office Visit 08/25/2019 3:40p [facility] [place] I10 Essential (primary) [place] Granger hypertension I49.5 Sick sinus syndrome R05 Cough Office Visit 07/15/2019 8:30a [facility] [place] FMary Z95.0 Presence of [place]anger cardiac pacemaker I49.5 Sick sinus syndrome I10 Essential (primary) hypertension E78.00 Pure hypercholesterolemia, unspecified R07.89 Other chest pain Office Visit 06/05/2019 3:30p [facility] Yue S. Z95.0 Presence of Joe, N.P. cardiac pacemaker I49.5 Sick sinus syndrome G47.33 Obstructive sleep apnea (adult) (pediatric) I10 Essential (primary) hypertension E78.5 Hyperlipidemia, unspecified Office Visit 05/15/2019 3:30p [facility] Yue S. Z95.0 Presence of Foster, N.P. cardiac pacemaker I49.5 Sick sinus syndrome E78.5 Hyperlipidemia, unspecified I10 Essential (primary) hypertension Office Visit 05/05/2019 3:20p [facility] [place] FMary Z95.0 Presence of Martin Granger cardiac pacemaker I49.5 Sick sinus syndrome E78.5 Hyperlipidemia, unspecified E78.00 Pure hypercholesterolemia, unspecified I10 Essential (primary) hypertension R07.89 Other chest pain Assessments Date Code Description Provider 09/15/2019 I10 Benign hypertension Yue S. Joe, N.P. 09/15/2019 I49.5 Sick sinus syndrome Yue S. Joe, N.P. 09/15/2019 Z95.0 Presence of cardiac pacemaker Yue S. Joe, N.P. 09/15/2019 E78.00 Hypercholesterolemia Yue S. Joe, N.P. 09/15/2019 G47.33 Obstructive sleep apnea (adult) Yue S. Joe, N.P. (pediatric) 08/25/2019 I10 Benign kimmie Granger M.D. 08/25/2019 I49.5 Sick sinus syndrome [place] M.D. 08/25/2019 R05 Cough [place] M.D. 08/06/2019 Z95.0 Presence of cardiac pacemaker [place] M.D. 08/06/2019 Z95.0 Presence of cardiac pacemaker Ica Pacer Schedule 08/06/2019 I49.5 Sick sinus syndrome Ica Pacer Schedule 07/15/2019 Z95.0 Presence of cardiac pacemaker [place] M.D. 07/15/2019 I49.5 Sick sinus syndrome [place] M.D. 07/15/2019 I10 Benign hypertension [place] M.D. 07/15/2019 E78.00 Hypercholesterolemia [place] M.D. 07/15/2019 R07.89 Chest discomfort [place] M.D. 06/05/2019 Z95.0 Presence of cardiac pacemaker Yue S. Joe, N.P. 06/05/2019 I49.5 Sick sinus syndrome Yue S. Joe, N.P. 06/05/2019 G47.33 Obstructive sleep apnea (adult) Yue S. Joe, N.P. (pediatric) 06/05/2019 I10 Benign hypertension Yue S. Joe, N.P. 06/05/2019 E78.5 Hyperlipidemia Yue S. Joe, N.P. 05/15/2019 Z95.0 Presence of cardiac pacemaker Yue S. Joe, N.P. 05/15/2019 I49.5 Sick sinus syndrome Yue Diaz N.P. 05/15/2019 E78.5 Hyperlipidemia Yue Diaz N.P. 05/15/2019 I10 Benign hypertension Yue Diaz N.P. 05/05/2019 Z95.0 Presence of cardiac pacemaker [place] M.D. 05/05/2019 I49.5 Sick sinus syndrome [place] M.D. 05/05/2019 E78.5 Hyperlipidemia [place] M.D. 05/05/2019 E78.00 Hypercholesterolemia [place] M.D. 05/05/2019 I10 Benign hypertension [place] M.D. 05/05/2019 R07.89 Chest discomfort [place] M.D. 04/02/2019 I49.5 Sick sinus syndrome Ica Pacer Schedule 04/02/2019 Z95.0 Presence of cardiac pacemaker [place] M.D. 04/02/2019 Z95.0 Presence of cardiac pacemaker Ica Pacer Schedule Plan of Treatment Future Appointment(s):10/06/2019 3:30 pm - Yue Diaz N.Christiano at [facility]01/26/2020 3:20 pm - [place] M.D. at [facility]10/23/2019 9:30 am - [place] M.D. at [facility]05/2020 3:00 pm - Jerry Love NP at [facility] Internal Medicine - [facility]09/15/2019 - Yue Diaz N.P.I10 Benign hypertensionNew Medication:Losartan Potassium 50 mg - 1 by mouth every dayFollow up:CT 09/24 BP check early AM. ELIEL Masona week of Recommendations:STOP irbesartan START losartan Call on Saturday and let us know what BP is or Saturday and/or side effects. If BP still high will try spironolactone.I49.5 Sick sinus jngdknvvV85.0 Presence of cardiac xxeibgmljU99.00 PlwoyxtmngereawdiadiQ10.33 Obstructive sleep apnea (adult) ( pediatric) Functional Status Description No Information Available Mental Status Description No Information Available Referrals Description No Information Available
--- OUTSIDE RECORDS SUMMARY | 2019-10-05 21:42 | XMS REPORT | Continuity of Care Document ---
:1960 External Reference #:[id number] Author Name West Granger M.D. (transmitted by agent of provider Daniella Love ) Address [address] [address] Care Team Providers Name Role Phone West Granger MD - Cardiovascular Care Team Information Placement Officer [phone] Disease Chicho Flaherty MD - Dermatology Care Team Information Placement Officer Jerry Love NP - Internal Medicine Care Team Information Placement Officer Problems Active Problems Provider Date Paroxysmal atrial [...] syndrome Tesha Saldaña DNP, RN, Onset: 06/12/2016 [facility] Peripheral vascular disease Grabiel Strickland M.D. Onset: [...] Start: Unknown quit 12/27/15 Smoking Status Reviewed: 08/25/19 quit 12/27/15 Exercise Type/Frequency Does not exercise Allergies, Adverse Reactions, Alerts Active Allergies Reaction Severity Comments Date Keflex yeast infection 01/05/2016 Lipitor Severe depression and myalgias 12/28/2016 symptoms Rosuvastatin Calcium nausea, memory Moderate 12/28/2016 Simvastatin Moderate 12/28/2016 Contrast Dye 06/06/2017 Cartia dizziness 08/25/2019 Lisinopril Cough Mild 08/25/2019 Amlodipine Dizziness Mild 08/25/2019 Medications Active Medications SIG Qnty Indications Ordering Date Provider Valsartan 1 tab by mouth 90tabs R05 [place] Brennan 08/25/2019 80mg Tablets every day Martin Granger Metoprolol Succinate ER 1/2 by mouth 30tabs [...] by mouth two times daily History Medications Amlodipine Besylate 1 by mouth 30tabs [place] 07/15/2019 - every day Martin Granger 08/25/2019 2.5mg Tablets Cartia XT 1 by mouth 30caps I10 [place] 05/05/2019 - 180mg Caps ER every day Martin Granger 05/15/2019 24HR Immunizations CPT Code Status Date Vaccine Reaction Lot # [id number] Given 07/09/2017 Influenza Virus Vaccine, no reaction, pt [id number] Quadrivalent, Split, tolerated well Preservative Free 11965 Given 10/09/2016 Tdap - [id number] Tetanus/Diptheria/Acellular Pertussis 33044 Given 05/11/2016 Influenza Virus Vaccine, Quadrivalent, Split, Preservative Free Vital Signs Date Vital Result Comment 08/25/2019 3:31pm Height 68 inches 5'8" Weight 185.38 lb without shoes Heart Rate 82 /min left radial regular BP Systolic Sitting 140 mmHg ule reg cuff BP Diastolic Sitting 80 mmHg ule reg cuff BP Systolic Standing 140 mmHg ule reg cuff BP Diastolic Standing 80 mmHg ule reg cuff BMI (Body Mass Index) 28.2 kg/m2 Ejection Fraction 60-65% Echocardiogram 12/27/2015 06/05/2019 3:15pm Height 68 inches 5'8" Weight 190.00 lb with shoes Heart Rate 68 /min radial,regular BP Systolic Sitting 140 mmHg LA, reg cuff BP Diastolic Sitting 78 mmHg LA, reg cuff BP Systolic Standing 142 mmHg LA, reg cuff BP Diastolic Standing 78 mmHg LA, reg cuff BMI (Body Mass Index) 28.9 kg/m2 Ejection Fraction 55% stress echo 03/01/16 Results Description No Information Available Procedures Date Code Description Status 08/25/2019 04701 EKG Tracing & Interpretation Completed 08/06/2019 40174 Pace Maker Eval W/Iterative Adjment Dual Lead Completed 08/06/2019 57460 Pace Maker Eval W/Iterative Adjment Dual Lead Completed 07/15/2019 94431 Stress Test Completed 05/05/2019 87180 EKG Tracing & Interpretation Completed 04/02/2019 33508 Pace Maker Eval W/Iterative Adjment Dual Lead Completed 04/02/2019 99356 Pace Maker Eval W/Iterative Adjment Dual Lead Completed 02/29/2016 [id number] Colonoscopy Completed 02/29/2016 [id number] Mammogram Completed Medical Devices Description No Information Available Encounters Type Date Location Provider Dx Diagnosis Office Visit 07/15/2019 [facility] [place] Brennan Z95.0 Presence of 8:30a Martin Granger cardiac pacemaker I49.5 Sick sinus syndrome I10 Essential (primary) hypertension E78.00 Pure hypercholesterolemia, unspecified R07.89 Other chest pain Office Visit 06/05/2019 3:30p [facility] Yue S. Z95.0 Presence of Foster, N.P. cardiac pacemaker I49.5 Sick sinus syndrome G47.33 Obstructive sleep apnea (adult) (pediatric) I10 Essential (primary) hypertension E78.5 Hyperlipidemia, unspecified Office Visit 05/15/2019 3:30p [facility] Yue S. Z95.0 Presence of Foster, N.P. cardiac pacemaker I49.5 Sick sinus syndrome E78.5 Hyperlipidemia, unspecified I10 Essential (primary) hypertension Office Visit 05/05/2019 3:20p [facility] West Brennan Z95.0 Presence of Martin Granger cardiac pacemaker I49.5 Sick sinus syndrome E78.5 Hyperlipidemia, unspecified E78.00 Pure hypercholesterolemia, unspecified I10 Essential (primary) hypertension R07.89 Other chest pain Assessments Date Code Description Provider 08/25/2019 I10 Benign hypertension West Granger M.D. 08/25/2019 I49.5 Sick sinus syndrome [...] 06/05/2019 I49.5 Sick sinus syndrome Yue S. Foster, N.P. 06/05/2019 G47.33 Obstructive sleep apnea (adult) Yue S. Foster, N.P. (pediatric) 06/05/2019 I10 Benign hypertension Yue S. Foster, N.P. 06/05/2019 E78.5 Hyperlipidemia Yue S. Foster, N.P. 05/15/2019 Z95.0 Presence of cardiac pacemaker Yue S. Foster, N.P. 05/15/2019 I49.5 Sick sinus syndrome Yue S. Foster, N.P. 05/15/2019 E78.5 Hyperlipidemia Yue S. Foster, N.P. 05/15/2019 I10 Benign hypertension Yue S. Foster, N.P. 05/05/2019 Z95.0 Presence of cardiac pacemaker [...] Ica Pacer Schedule Plan of Treatment Future Appointment(s):01/26/2020 3:20 pm - West Granger M.D. at [facility]09/15/2019 3:30 pm - Yue Eliud Daiz N.P. at [facility]10/23/2019 9:30 am - West Granger M.D. at [facility]2019 3:00 pm - Jerry Love NP at [facility] Internal [facility] - [facility]08/25/2019 - West Granger M.D.I10 Benign hypertensionNew Xrays:VL Renal Art Doppler Bilat, Ordered: 08/25/19Follow up:rayna Turner 2 -3 weeks rayna [facility] 5 mRecommendations: stop [id number] Sick sinus [id number] CoughNew Medication:Valsartan 80 mg - 1 tab by mouth every dayRecommendations:stop lisinopril Functional Status Description No Information Available Mental Status Description No Information Available Referrals Description No Information Available
[2019-10-05 22:28] LABS: ABS Basophils 0.1 10^3/ul (0-0.2); ABS Eosinophils 0.3 10^3/ul (0-0.6); ABS Lymphocytes 2.2 10^3/ul (1.0-4.8); ABS Monocytes 0.7 10^3/ul (0-0.8); ABS Neutrophils 6.8 10^3/ul (1.5-7.7); Eosinophil % 2.7 %; Hematocrit 36 % (35-47); Hemoglobin 12.4 g/dL (12.0-16.0); Lymphocyte % 22.3 %; Mean Corpuscular HGB Conc 35 g/dL (31-36); Mean Corpuscular Hemoglobin 34 pg (27-31); Mean Corpuscular Volume 98 fL (80-97); Nucleated Red Blood Cells % 0.1; Platelet Count 231 10^3/uL (150-450); Red Blood Count 3.66 10^6 /uL (3.70-4.87); Red Cell Distribution Width 14 % (10-15); White Blood Count 10.1 10^3/uL (3.5-10.8)
[2019-10-05 22:39] LABS: Albumin 4.3 g/dL (3.2-5.2); Calcium 9.1 mg/dL (8.6-10.3); Potassium 3.9 mmol/L (3.5-5.0); Total Bilirubin 0.5 mg/dL (0.2-1.0)
[2019-10-05 22:41] LABS: Influenza A Molecular Negative (Negative); Influenza B Molecular Negative (Negative)
[2019-10-05 22:45] LABS: BUN/Creatinine Ratio 19.3 (8-20); C Reactive Protein 1.49 mg/L (<8.01); EGFR African American 85.7 (>60); EGFR Non-African American 70.9 (>60); Globulin 2.2 g/dL (2-4); Total Protein 6.5 g/dL (6.4-8.9)
[2019-10-05] MEDS ORDERED: cloNIDine TAB* 0.1 MG PO ONE (23:11)
--- NOTE | 2019-10-05 23:15 | ED ---
Hypertension - HPI Summary HPI Summary: 58-year-old female presents with high blood pressure today. She's been checking her blood pressure for the past week has been elevated. her primary has been changing her blood pressure meds. States that she is felt little off today. she has a mild headache is 2 out of10. no history of headaches. she felt little dizzy and nauseous. States she is feeling a little bit better now. She did take her nighttime metoprolol. She just started diuretic but does not know which one it is. She denies any fevers. No cough. No sinus congestion. She wonders if she is coming down with illness. States she is on blood thinners. She denies any chest pain or shortness of breath. No palpitations. - History of Current Complaint Chief Complaint: EDHypertension Stated Complaint: HIGH BLOOD PRESSURE PER PT Time Seen by Provider: 10/05/19 22:05 Hx Last Menstrual Period: spotting now - Allergies/Home Medications Allergies/Adverse Reactions: Allergies Allergy/AdvReac Type Severity Reaction Status Date / Time cephalexin Allergy See Comment Verified 10/05/19 21:33 Ikhhpcl-Gpy-Tmc Reductase Allergy Pain Verified 10/05/19 21:33 Inhibitor contrast dye Allergy Hives Uncoded 10/05/19 21:33 PMH/Surg Hx/FS Hx/Imm Hx Endocrine/Hematology History: Reports: Hx Anticoagulant Therapy - LOW DOSE ASPIRIN SINCE 2012 Denies: Hx Diabetes, Hx Thyroid Disease Cardiovascular History: Reports: Hx Hypercholesterolemia, Hx Pacemaker/ICD, Other Cardiovascular Problems/Disorders - sick sinus syndrome Denies: Hx Angina, Hx Coronary Artery Disease, Hx Hypertension - NOW OFF MEDS DUE TO QUIT SMOKING, Hx Myocardial Infarction Respiratory History: Reports: Other Respiratory Problems/Disorders - 43 YEARS OF PACK A DAY SMOKING Denies: Hx Asthma, Hx Chronic Obstructive Pulmonary Disease (COPD) GI History: Reports: Hx Gastroesophageal Reflux Disease, Hx Ulcer History: Denies: Hx Renal Disease Musculoskeletal History: Reports: Hx Arthritis Denies: Hx Scoliosis Sensory History: Reports: Hx Contacts or Glasses - reading glasses Denies: Hx Hearing Aid Opthamlomology History: Reports: Hx Contacts or Glasses - reading glasses Neurological History: Denies: Hx Headaches, Other Neuro Impairments/Disorders Psychiatric History: Reports: Hx Depression Denies: Hx Panic Disorder - Surgical History Surgery Procedure, Year, and Place: Choleycystectomy, 2006 Infectious Disease History: No Infectious Disease History: Reports: Hx Clostridium Difficile - Recent dx of Cdiff 1 week ago Denies: Hx Hepatitis, Hx Human Immunodeficiency Virus (HIV), Hx of Known/ Suspected MRSA, Hx Shingles, Hx Tuberculosis, Hx Known/Suspected VRE, Hx Known/ Suspected VRSA, History Other Infectious Disease, Traveled Outside the [place] in Last 30 Days - Family History Known Family History: Positive: Cardiac Disease - BOTH PARENTS DIES [place] AGE 65, Other - MGM - PANCREATIC CANCER - Social History Alcohol Use: Rare Hx Substance Use: No Substance Use Type: Reports: None Substance Use Comment - Amount & Last Used: 1-2 TIMES A MONTH Hx Tobacco Use: Yes Smoking Status (MU): Former Smoker Type: Cigarettes Amount Used/How Often: 15 cigs per day Length of Time of Smoking/Using Tobacco: 40+years Have You Smoked in the Last Year: Yes Review of Systems Negative: Fever Negative: Chest Pain Negative: Shortness Of Breath Positive: Headache All Other Systems Reviewed And Are Negative: Yes Physical Exam Triage Information Reviewed: Yes Vital Signs On Initial Exam: Initial Vitals Temp Pulse Resp BP Pulse Ox 98.3 F 86 15 191/104 96 10/05/19 21:32 10/05/19 21:32 10/05/19 21:32 10/05/19 21:32 10/05/19 21:32 Vital Signs Reviewed: Yes Appearance: Positive: Well-Appearing Skin: Positive: Warm, Dry Head/Face: Positive: Normal Head/Face Inspection Eyes: Positive: Normal, EOMI, RAVINDER, Conjunctiva Clear ENT: Positive: Normal ENT inspection, Pharynx normal, TMs normal Respiratory/Lung Sounds: Positive: Clear to Auscultation, Breath Sounds Present Cardiovascular: Positive: Normal, RRR Abdomen Description: Positive: Nontender, Soft Bowel Sounds: Positive: Present Musculoskeletal: Positive: Normal Neurological: Positive: Sensory/Motor Intact, Alert, Oriented to Person Place, Time, CN Intact II-III Psychiatric: Positive: Normal Procedures - Sedation Patient Received Moderate/Deep Sedation with Procedure: No Diagnostics - Vital Signs Vital Signs Temp Pulse Resp BP Pulse Ox 10/05/19 21:32 98.3 F 86 15 191/104 96 - Laboratory Lab Results: Lab Results 10/05/19 10/05/19 10/05/19 Range/Units 22:19 22:19 22:19 WBC 10.1 (3.5-10.8) 10^3/uL RBC 3.66 L (3.70-4.87) 10^6 /uL Hgb 12.4 (12.0-16.0) g/dL Hct 36 (35-47) % MCV 98 H (80-97) fL MCH 34 H (27-31) pg MCHC 35 (31-36) g/dL RDW 14 (10-15) % Plt Count 231 (150-450) 10^3/uL MPV 8.0 (7.4-10.4) fL Neut % (Auto) 67.3 % Lymph % (Auto) 22.3 % Taylor % (Auto) 7.0 % Eos % (Auto) 2.7 % Baso % (Auto) 0.7 % Absolute Neuts (auto) 6.8 (1.5-7.7) 10^3/ul Absolute Lymphs (auto) 2.2 (1.0-4.8) 10^3/ul Absolute Monos (auto) 0.7 (0-0.8) 10^3/ul Absolute Eos (auto) 0.3 (0-0.6) 10^3/ul Absolute Basos (auto) 0.1 (0-0.2) 10^3/ul Absolute Nucleated RBC 0.0 10^3/ul Nucleated RBC % 0.1 Sodium 138 (135-145) mmol/L Potassium 3.9 (3.5-5.0) mmol/L Chloride 104 (101-111) mmol/L Carbon Dioxide 25 (22-32) mmol/L Anion Gap 9 (2-11) mmol/L BUN 16 (6-24) mg/dL Creatinine 0.83 (0.51-0.95) mg/dL Est GFR ( Amer) 85.7 (>60) Est GFR (Non-Af Amer) 70.9 (>60) BUN/Creatinine Ratio 19.3 (8-20) Glucose 105 H (70-100) mg/dL Lactic Acid 0.7 (0.5-2.0) mmol/L Calcium 9.1 (8.6-10.3) mg/dL Total Bilirubin 0.50 (0.2-1.0) mg/dL AST 35 (13-39) U/L ALT 33 (7-52) U/L Alkaline Phosphatase 93 (34-104) U/L C-Reactive Protein 1.49 (<8.01) mg/L Total Protein 6.5 (6.4-8.9) g/dL Albumin 4.3 (3.2-5.2) g/dL Globulin 2.2 (2-4) g/dL Albumin/Globulin Ratio 2.0 (1-3) Influenza A (Rapid) (Negative) Influenza B (Rapid) (Negative) 10/05/19 Range/Units 22:19 WBC (3.5-10.8) 10^3/uL RBC (3.70-4.87) 10^6 /uL Hgb (12.0-16.0) g/dL Hct (35-47) % MCV (80-97) fL MCH (27-31) pg MCHC (31-36) g/dL RDW (10-15) % Plt Count (150-450) 10^3/uL MPV (7.4-10.4) fL Neut % (Auto) % Lymph % (Auto) % Taylor % (Auto) % Eos % (Auto) % Baso % (Auto) % Absolute Neuts (auto) (1.5-7.7) 10^3/ul Absolute Lymphs (auto) (1.0-4.8) 10^3/ul Absolute Monos (auto) (0-0.8) 10^3/ul Absolute Eos (auto) (0-0.6) 10^3/ul Absolute Basos (auto) (0-0.2) 10^3/ul Absolute Nucleated RBC 10^3/ul Nucleated RBC % Sodium (135-145) mmol/L Potassium (3.5-5.0) mmol/L Chloride (101-111) mmol/L Carbon Dioxide (22-32) mmol/L Anion Gap (2-11) mmol/L BUN (6-24) mg/dL Creatinine (0.51-0.95) mg/dL Est GFR ( Amer) (>60) Est GFR (Non-Af Amer) (>60) BUN/Creatinine Ratio (8-20) Glucose (70-100) mg/dL Lactic Acid (0.5-2.0) mmol/L Calcium (8.6-10.3) mg/dL Total Bilirubin (0.2-1.0) mg/dL AST (13-39) U/L ALT (7-52) U/L Alkaline Phosphatase (34-104) U/L C-Reactive Protein (<8.01) mg/L Total Protein (6.4-8.9) g/dL Albumin (3.2-5.2) g/dL Globulin (2-4) g/dL Albumin/Globulin Ratio (1-3) Influenza A (Rapid) Negative (Negative) Influenza B (Rapid) Negative (Negative) Result Diagrams: 10/05/19 22:19 10/05/19 22:19 Lab Statement: Any lab studies that have been ordered have been reviewed, and results considered in the medical decision making process. - CT brain CT Interpretation Completed By: Radiologist Summary of CT Findings: IMPRESSION: No acute intracranial abnormality. - EKG No standard instances Cardiac Rate: NL EKG Rhythm: Sinus Rhythm EKG Comparison: No Significant Change Summary of EKG Findings: sinus rhythm Re-Evaluation - Re-Evaluation First Eval Comment: feeling better Hypertension Course/Dx - Course Course Of Treatment: 58-year-old female presents with high blood pressure today. She's been checking her blood pressure for the past week has been elevated. her primary has been changing her blood pressure meds. States that she is felt little off today. she has a mild headache is 2 out of10. no history of headaches. she felt little dizzy and nauseous. States she is feeling a little bit better now. She did take her nighttime metoprolol. She just started diuretic but does not know which one it is. She denies any fevers. No cough. No sinus congestion. She wonders if she is coming down with illness. States she is on blood thinners. She denies any chest pain or shortness of breath. No palpitations. On exam has normal neuro exam. initially pressure was initially in the 180s. EKG shows sinus rhythm. lab work wnl. CT brain normal. Gave clonidine blood pressure came down to 160. Patient has follow with primary tomorrow. Told to discuss with primary about changing pressure meds as needed. Patient understands and agrees with plan. - Diagnoses Differential Diagnosis/HQI PQRI: Hypertension, Hypertensive Crisis, Hypertensive Urgency Provider Diagnoses: Hypertension Discharge ED - Sign-Out/Discharge Documenting (check all that apply): Patient Departure - Discharge Plan Condition: Good Disposition: HOME Patient Education Materials: Hypertension (ED) Referrals: Jerry Love NP [Primary Care Provider] - Additional Instructions: follow up with primary as scheduled limit salt intake return to ED if develop any new or worsening symptoms - Billing Disposition and Condition Condition: GOOD Disposition: Home
[2019-10-06 00:16] VITALS: BP 163/88
== END 2019-10-06 00:16 | disposition home or self-care (01) ==
LOC: ED 21:29
DX: I10 Essential (primary) hypertension (principal); Z95.810 Presence of automatic (implantable) cardiac defibrillator; Z79.82 Long term (current) use of aspirin; Z88.8 Allergy status to other drugs, medicaments and biological substances; Z88.1 Allergy status to other antibiotic agents; Z91.041 Radiographic dye allergy status; Z87.891 Personal history of nicotine dependence
CPT/HCPCS: 36415; 70450; 80053; 83605; 85025; 86140; 93005; 99282; A9270-GY